=== PATIENT | female | born 1945 | race Caucasian/White ===

== ENCOUNTER 2016-05-07 10:04 | Outpatient (CLI) | payer MEDICARE | END 2016-05-07 10:05 | disposition home or self-care (01) | DX: J47.9 Bronchiectasis, uncomplicated (principal); J44.1 Chronic obstructive pulmonary disease with (acute) exacerbation; R91.1 Solitary pulmonary nodule; R91.8 Other nonspecific abnormal finding of lung field ==

== ENCOUNTER 2016-07-04 10:16 | Outpatient (CLI) | payer MEDICARE | END 2016-07-04 10:17 | disposition home or self-care (01) | DX: R91.8 Other nonspecific abnormal finding of lung field (principal) ==

== ENCOUNTER 2016-08-14 09:17 | Outpatient (CLI) | payer MEDICARE ==
[2016-08-14 18:40] LABS: BASOPHILS # (AUTO) 0.1 10^3/uL (0.0-0.1); EOSINOPHILS # (AUTO) 0.1 10^3/uL (0.0-0.7); EOSINOPHILS % (AUTO) 1.8 %; HCT - HEMATOCRIT 45.4 % (37.0-47.0); HGB - HEMOGLOBIN 14.9 g/dL (12.0-16.0); LYMPHOCYTES % (AUTO) 26.1 %; MEAN CORPUSCULAR HEMOGLOBIN 30.3 pg (27.0-31.0); MEAN CORPUSCULAR HGB CONC 32.8 g/dL (32.0-36.0); MEAN CORPUSCULAR VOLUME 92.7 fL (81.0-99.0); MEAN PLATELET VOLUME 9.5 fL (7.9-10.8); MONOCYTES # (AUTO) 0.6 10^3/uL (0.0-1.0); MONOCYTES % (AUTO) 8.3 %; NEUTROPHILS # (AUTO) 4.9 10^3/uL (1.5-6.6); NEUTROPHILS % (AUTO) 62.8 %; NUCLEATED RED BLOOD CELLS AUTO 0.1 /100WBC; RED CELL DISTRIBUTION WIDTH 15.2 % (12.0-15.0); UNCORRECTED WHITE BLOOD COUNT 7.8 x10^3/uL; WHITE BLOOD COUNT 7.8 x10^3/uL (4.8-10.8)
[2016-08-14 18:49] LABS: ALBUMIN/GLOBULIN RATIO 1.1 (1.0-2.2); BILIRUBIN,TOTAL 0.4 mg/dL (0.2-1.0); CALCIUM 9.3 mg/dL (8.5-10.3); CREATININE 0.6 mg/dL (0.4-1.0); POTASSIUM 3.8 mmol/L (3.5-5.0); TOTAL PROTEIN 7.6 g/dL (6.7-8.2)
== END 2016-08-14 09:18 | disposition home or self-care (01) ==
LOC: LAB.F 09:17
PROVIDERS: ATTEND Nurse Practitioner Family
DX: Z51.81 Encounter for therapeutic drug level monitoring (principal)
CPT/HCPCS: 36415; 80053; 85025

== ENCOUNTER 2017-06-04 08:00 | Outpatient (CLI) | payer MEDICARE ==
[2017-06-04 17:31] LABS: ALBUMIN 4.1 g/dL (3.2-5.5); ALBUMIN/GLOBULIN RATIO 1.1 (1.0-2.2); BILIRUBIN,TOTAL 0.6 mg/dL (0.2-1.0); CALCIUM 9.1 mg/dL (8.5-10.3); CREATININE 0.5 mg/dL (0.4-1.0)
== END 2017-06-04 08:01 | disposition home or self-care (01) ==
LOC: LAB.F 08:00
PROVIDERS: ATTEND Physician Assistant Medical
DX: Z51.81 Encounter for therapeutic drug level monitoring (principal)
CPT/HCPCS: 36415; 80053

== ENCOUNTER 2017-06-17 14:00 | Outpatient (CLI) | payer MEDICARE ==
--- NOTE | 2017-06-17 16:10 | DEXA Report ---
DEXA SCAN: 06/17/2017 CLINICAL INDICATION: Postmenopausal. TECHNIQUE: Dual energy x-ray absorptiometry (DXA) was performed on a [employer] system. Regions measured are the AP spine, femoral neck, and, if needed, forearm. COMPARISON: None. In accordance with the International Society for Clinical Densitometry (ISCD) guidelines, data from previous exams may be reanalyzed using current recommendations and techniques. This is done to allow a more accurate basis for comparison with the current study. FINDINGS Data for the lumbar spine is as follows: REGION BMD (g/cm/cm) T-SCORE Z-SCORE L1 1.078 -0.4 2.0 L2 1.235 0.3 2.7 L3 1.012 -1.6 0.8 L4 0.926 -2.3 0.1 L1-L4 1.061 -1.0 1.4 NOTE: All evaluable vertebrae are used for classification. Data for the hip is as follows: REGION BMD (g/cm/cm) T-SCORE Z-SCORE Neck 0.769 -1.9 0.3 TOTAL 0.867 -1.1 1.0 NOTE: The femoral neck or total proximal femur, whichever is lowest, is used for classification. IMPRESSION WHO CLASSIFICATION BASED ON THE INTERNATIONAL REFERENCE STANDARD IS OSTEOPENIA. FRACTURE RISK IS INCREASED. RECOMMENDATION: Patients with diagnosis of osteoporosis or osteopenia should have regular bone mineral density assessment. For those eligible for Medicare, routine testing is allowed once every 2 years. Testing frequency can be increased for patients who have rapidly progressing disease or for those who are receiving medical therapy to restore bone mass. COMMENT World Health Organization (WHO) definitions for osteoporosis and osteopenia: NORMAL BMD: T-score at 1.0 or higher, fracture risk is low. OSTEOPENIA BMD: T-score between 1.0 and -2.5, fracture risk is increased. OSTEOPOROSIS BMD: T-score at 2.5 or lower, fracture risk high. National Osteoporosis Foundation recommends: 1. Obtain adequate dietary calcium (at least 1200 mg per day) and vitamin D (400 -800 international units per day). 2. Participate, as appropriate, in regular weightbearing and muscle- strengthening exercise. 3. Avoid tobacco use and reduce alcohol and caffeine intake. 4. For more detailed information see the website at www.NOF.org. TD: 06/17/2017 15:16 PRISCA
== END 2017-06-17 14:01 | disposition home or self-care (01) ==
LOC: DI 14:00
PROVIDERS: ATTEND Physician Assistant Medical
DX: M85.89 Other specified disorders of bone density and structure, multiple sites (principal)
CPT/HCPCS: 77080

== ENCOUNTER 2017-08-12 11:41 | Outpatient (CLI) | payer MEDICARE ==
--- NOTE | 2017-08-12 14:04 | CT Report ---
CT OF CHEST WITHOUT CONTRAST: 08/12/2017 CLINICAL INDICATION: Solitary pulmonary nodule. COMPARISON: 05/07/2016. TECHNIQUE: Axial CT images of the chest were obtained without intravenous contrast. FINDINGS: The heart and great vessels demonstrate mild atherosclerotic calcifications. No hilar or mediastinal lymphadenopathy is appreciated. The lungs again demonstrate extensive bronchiectasis, with endobronchial plugging. The previously noted 5 mm nodule in the lateral right lower lobe is stable. No definite new pulmonary nodule is appreciated. No effusion or pneumothorax is present. Limited evaluation of upper abdominal structures demonstrates normal adrenal glands. Osseous structures demonstrate degenerative changes. IMPRESSION: STABLE RIGHT LOWER LOBE PULMONARY NODULE. STABLE EXTENSIVE BRONCHIECTASIS WITH MUCUS PLUGGING. NO SIGNIFICANT INTERVAL CHANGE. CT DOSE REDUCTION STATEMENT In accordance with CT protocol optimization, one or more of the following dose reduction techniques were utilized for this exam: automated exposure control, adjustment of mA and/or KV based on patient size, or use of iterative reconstructive technique. TD: 08/12/2017 13:41
== END 2017-08-12 11:42 | disposition home or self-care (01) ==
LOC: DI 11:41
PROVIDERS: ATTEND Internal Medicine Sleep Medicine
DX: R91.1 Solitary pulmonary nodule (principal); J47.9 Bronchiectasis, uncomplicated
CPT/HCPCS: 71250

== ENCOUNTER 2017-08-14 08:14 | Outpatient (CLI) | payer MEDICARE ==
[2017-08-14 11:17] LABS: BASOPHILS # (AUTO) 0.1 10^3/uL (0.0-0.1); BASOPHILS % (AUTO) 0.8 %; EOSINOPHILS % (AUTO) 0.2 %; HGB - HEMOGLOBIN 15.6 g/dL (12.0-16.0); LYMPHOCYTES # (AUTO) 1.3 10^3/uL (1.5-3.5); LYMPHOCYTES % (AUTO) 17.2 %; MEAN CORPUSCULAR HEMOGLOBIN 30.1 pg (27.0-31.0); MEAN CORPUSCULAR HGB CONC 32.9 g/dL (32.0-36.0); MEAN CORPUSCULAR VOLUME 91.4 fL (81.0-99.0); MEAN PLATELET VOLUME 9.6 fL (7.9-10.8); MONOCYTES # (AUTO) 0.3 10^3/uL (0.0-1.0); MONOCYTES % (AUTO) 3.5 %; NEUTROPHILS # (AUTO) 6.1 10^3/uL (1.5-6.6); NEUTROPHILS % (AUTO) 78.3 %; PLT - PLATELET COUNT 222 10^3/uL (130-450); RED BLOOD COUNT 5.19 10^6/uL (4.20-5.40); RED CELL DISTRIBUTION WIDTH 16.7 % (12.0-15.0); WHITE BLOOD COUNT 7.8 x10^3/uL (4.8-10.8)
[2017-08-14 11:54] LABS: PLATELET ESTIMATE, MANUAL NORMAL (130-450,000) (NORMAL); PLATELET MORPHOLOGY 1+ GIANT PLATELETS (NORMAL); RBC MORPHOLOGY (MULTIPLE) NORMAL APPEARANCE (NORMAL)
[2017-08-14 11:59] LABS: THYROID STIMULATING HORMONE 0.36 uIU/mL (0.34-5.60)
[2017-08-15 10:04] LABS: FREE T4 (FREE THYROXINE) 0.74 ng/dL (0.58-1.64)
== END 2017-08-14 08:15 | disposition home or self-care (01) ==
LOC: LAB.F 08:14
PROVIDERS: ATTEND Physician Assistant Medical
DX: R53.83 Other fatigue (principal); R94.6 Abnormal results of thyroid function studies; Z51.81 Encounter for therapeutic drug level monitoring
CPT/HCPCS: 36415; 84439; 84443; 84481; 85025

== ENCOUNTER 2017-08-26 08:00 | Outpatient (CLI) | payer MEDICARE ==
[2017-09-02 06:11] LABS: CREATININE, URINE 0.75 g/24 h (0.63-2.50)
== END 2017-08-26 23:59 ==
LOC: LAB.R 08:00
PROVIDERS: ATTEND Physician Assistant Medical
DX: R53.83 Other fatigue (principal)
CPT/HCPCS: 82530; 82570

== ENCOUNTER 2017-09-12 08:36 | Outpatient (CLI) | payer MEDICARE | END 2017-09-12 08:37 | disposition home or self-care (01) | LOC: RT 08:36 | PROVIDERS: ATTEND Internal Medicine Cardiovascular Disease | DX: R06.00 Dyspnea, unspecified (principal) | CPT/HCPCS: 93005 ==

== ENCOUNTER 2017-09-18 09:09 | Outpatient (CLI) | payer MEDICARE | END 2017-09-18 09:10 | disposition home or self-care (01) | LOC: DI 09:09 | PROVIDERS: ATTEND Internal Medicine Cardiovascular Disease | DX: R06.00 Dyspnea, unspecified (principal); I51.7 Cardiomegaly; R59.0 Localized enlarged lymph nodes | CPT/HCPCS: 76882; 93306 ==

== ENCOUNTER 2017-09-18 09:10 | Outpatient (CLI) | payer MEDICARE ==
--- NOTE | 2017-09-18 10:27 | Ultrasound Report ---
Procedure Date: 09/18/2017 Accession Number: [id number] / [id number] Procedure: US - Ext Limited Non Vascular CPT Code: FULL RESULT: EXAM: Ext Limited Non Vascular DATE: 09/18/2017 10:16 AM CLINICAL HISTORY: AXILLARY LYMPHADENOPATHY TECHNIQUE: Grayscale ultrasound and limited color Doppler of the area of interest in the right axilla was obtained. COMPARISON: None FINDINGS: Multiple morphologically normal subcentimeter lymph nodes are identified. There is no mass or collection. There is no hyperemia in the region by color Doppler. IMPRESSION: Sonographically normal lymph nodes with no evidence of mass or collection to suggest abscess.
== END 2017-09-18 09:11 | disposition home or self-care (01) ==
LOC: DI 09:10
PROVIDERS: ATTEND Physician Assistant Medical
DX: R59.0 Localized enlarged lymph nodes (principal)
CPT/HCPCS: 76882

== ENCOUNTER 2017-10-10 08:46 | Outpatient (CLI) | payer MEDICARE ==
[2017-10-10] MEDS ORDERED: REGADENOSON 0.4 MG/5 ML SYRINGE IVP ONE ×2 (09:43→14:10)
--- NOTE | 2017-10-10 12:11 | CARDIAC PROCEDURE NOTE ---
DATE OF SERVICE: 10/10/2017 Physician: MINO Blanco PRIMARY CARE PHYSICIAN: Dee Aguilar PA-C RESOURCE MANAGEMENT SPECIALIST: Dr. Michael Goldman M.D. PROCEDURE: Pharmacologic cardiac stress test. PROCEDURE SYMPTOMS: Dyspnea on exertion. CARDIAC RISK FACTORS: Age. No previous cardiac procedures. CLINICAL HISTORY: A 72-year-old female without known coronary artery disease. She has COPD and ligh t wheezing. There were no medications held. INITIAL RESTING VITAL SIGNS: BP 114/86, heart rate 93, height 56 inches, weight 100 pounds, BMI 22.2 . PROCEDURE AND FINDINGS: The patient's identity and date verified. Consent signed. Pharmaceut ical check. Pharmacologic stress testing was performed with Lexiscan at a dose of 0.5 mg over 10 seconds. The he art rate increased to 117 beats per minute from the infusion. Blood pressure elevated to 130/84 duri ng the stress procedure. The patient developed infusion-related symptoms, which included dyspnea and headache, and resolved spontaneously. The resting ECG demonstrated normal sinus rhythm with nondiag nostic Q-waves. Maximum ST segment depression with stress was less than 0.5 mm and upsloping. There was occasional PAC ectopy. FINAL IMPRESSIONS 1. Negative electrocardiogram for ischemia in the setting of vasodilator stress. 2. Nondiagnostic stress test for angina. 3. Occasional PAC. DISCUSSION AND RECOMMENDATIONS: Await myocardial perfusion report. TD: 10/10/2017 11:48
--- NOTE | 2017-10-10 16:03 | Nuclear Medicine Report ---
Procedure Date: 10/10/2017 Accession Number: [id number] / [id number] Procedure: NM - Myocardial Perfusion STR/RST CPT Code: FULL RESULT: EXAM: SINGLE-ISOTOPE PHARMACOLOGICAL STRESS TEST WITH REGADENOSON. SINGLE-ISOTOPE AND ONE-DAY REST/STRESS MYOCARDIAL PERFUSION SCANS WITH TOMOGRAPHIC IMAGING, QUANTITATIVE ANALYSIS, WALL MOTION ANALYSIS AND CALCULATION OF EJECTION FRACTION. EXAM DATE: 10/10/2017 02:11 PM. CLINICAL HISTORY: Dyspnea on exertion. COMPARISON: None available. TECHNIQUE: After the intravenous administration of 9.9 mCi of Tc-99m sestamibi, a rest myocardial perfusion scan was done with tomography. Motion correction was applied when appropriate. After an appropriate delay, pharmacological stress was performed with the infusion of 0.4 mg regadenoson per protocol. According to protocol, 41.3 mCi of Tc-99m sestamibi was injected for stress myocardial perfusion scan. Motion correction was applied when appropriate. Gated tomographic images were obtained for wall motion analysis and computation of left ventricular ejection fraction. ECG findings reported separately. FINDINGS: Images show a mildly reversible lateral wall defect. No other convincing fixed or reversible perfusion defects. Computer generated analysis: Summed stress score 7 Summed rest score 0 Summed difference score 7 Visually corrected: Summed stress score 5 Summed rest score 0 Summed difference score 5 wall motion analysis demonstrates no focal wall motion abnormality.. The left ventricular end-diastolic volume is 26 cc. The left ventricular end-systolic volume is 1 cc. The left ventricular ejection fraction is calculated to be 98%. IMPRESSION: 1. Mild reversible lateral wall defect. No other convincing fixed or reversible perfusion defects. 2. Left ventricular ejection fraction of 98% (this is presumably an overestimate). 3. Normal segmental and global wall motion. 4. Normal left ventricular cavity size, no change with stress. 5. Based on computer analysis, mildly abnormal exam with moderate ischemia. Based on visual analysis, the degree of ischemia is likely overestimated. RADIA
[2017-10-14 16:58] VITALS: BP 114/86
== END 2017-10-10 08:47 | disposition home or self-care (01) ==
LOC: DI 08:46
PROVIDERS: ATTEND Internal Medicine Cardiovascular Disease
DX: R06.09 Other forms of dyspnea (principal); I25.9 Chronic ischemic heart disease, unspecified; I49.1 Atrial premature depolarization
CPT/HCPCS: 78452; 93017; A9500; J2785

== ENCOUNTER 2017-11-28 08:50 | Outpatient (CLI) | payer MEDICARE ==
--- NOTE | 2017-12-02 15:23 | Mammography Report ---
Reason: SCREENING MAMMO Procedure Date: 11/28/2017 Accession Number: [id number] / [id number] Procedure: TACO - Screening Mammo Dig Bilat CPT Code: FULL RESULT: EXAM: Screening Mammo Dig Bilat DATE: 11/28/2017 3:35 PM CLINICAL HISTORY: 72-year-old female with history of late childbearing. TECHNIQUE: Bilateral CC and MLO views were obtained. COMPARISON: This will be a new baseline mammogram is the most recent mammograms over 10 years old. The patient cannot recall where these were done. FINDINGS: The breasts demonstrate extremely dense parenchyma bilaterally, limiting the sensitivity of mammography. No suspicious masses, clustered microcalcifications, or regions of architectural distortion are identified. IMPRESSION: Negative examination RECOMMENDATION: Routine annual screening unless otherwise clinically indicated. BIRADS CATEGORY 1: Negative STANDARD QUALIFYING STATEMENTS: 1. This examination was not reviewed with the aid of Computer-Aided Detection (CAD). 2. A negative or benign imaging report should not delay biopsy if clinically suspicious findings are present. Consider surgical consultation if warrented. More than 5% of cancers are not identified by imaging. 3. Dense breasts may obscure an underlying neoplasm. 4. This examination was reviewed without the aid of 3D breast imaging (tomosynthesis).
== END 2017-11-28 08:51 | disposition home or self-care (01) ==
LOC: DI 08:50
PROVIDERS: ATTEND Radiology Diagnostic Radiology
DX: Z12.31 Encounter for screening mammogram for malignant neoplasm of breast (principal)
CPT/HCPCS: 77067

== ENCOUNTER 2018-12-18 09:51 | Day surgery (SDC) | payer MEDICARE ==
[2018-12-18] MEDS ORDERED: MIDAZOLAM 2 MG/2 ML VIAL IVP ONE (09:52)
[2018-12-18] MEDS ORDERED: fentaNYL 100 MCG/2 ML VIAL IVP ONE (09:52)
[2018-12-18] MEDS ORDERED: LACTATED RINGERS 1,000 ML IV ONE (10:42)
[2018-12-18 13:28] VITALS: BP 104/76
== END 2018-12-18 09:52 | disposition home or self-care (01) ==
LOC: SDS 09:51
PROVIDERS: ATTEND Surgery
PROC: 0DJD8ZZ Inspection of Lower Intestinal Tract, Via Natural or Artificial Opening Endoscopic (ICD-10-PCS; principal; 2018-12-18 11:45)
DX: R19.5 Other fecal abnormalities (principal); K57.30 Diverticulosis of large intestine without perforation or abscess without bleeding; Z86.010 Personal history of colon polyps; J44.9 Chronic obstructive pulmonary disease, unspecified
CPT/HCPCS: 45378; J7120

== ENCOUNTER 2020-02-05 15:58 | Outpatient (CLI) | payer MEDICARE | END 2020-02-05 15:59 | disposition home or self-care (01) | LOC: COV 15:58 | PROVIDERS: ATTEND Ophthalmology | DX: Z01.812 Encounter for preprocedural laboratory examination (principal); H25.811 Combined forms of age-related cataract, right eye; Z20.828 Contact with and (suspected) exposure to other viral communicable diseases ==

== ENCOUNTER 2020-02-11 09:21 | Day surgery (SDC) | payer MEDICARE ==
[~2020-02-11 09:21] MED LIST: KETOROLAC 0.45% OPHTH DROPS ONE; PHENYLEPHRINE 2.5% OPHTH 2 ML DROPS ONE; PROPARACAINE 0.5% OPHTH DROPS 15 ML ONE
[2020-02-11] MEDS ORDERED: LACTATED RINGERS 500 ML IV ONE ×2 (10:00→11:03)
--- NOTE | 2020-02-11 10:27 | ANESTHESIA ---
Pre-Anesthesia VS, & Labs - Diagnosis right eye senile combined cataract - Procedure right eye cataract extraction with IOL Vital Signs: Temp Pulse Resp BP Pulse Ox 36.2 C L 95 16 137/119 H 91 L 02/11/20 09:55 02/11/20 09:55 02/11/20 09:55 02/11/20 09:55 02/11/20 09:55 Height: 5 ft 9 in Weight (kg): 44.4 kg Body Mass Index: 14.4 BMI Classification: Underweight - NPO >8 hours - Is Patient ?: No Home Medications and Allergies Home Medications: Ambulatory Orders Ciclesonide [Alvesco] 1 puffs PO BID 02/10/20 Albuterol 1 QID 12/18/18 Multivitamin [Daily Multiple Vitamin] 1 PO DAILY 12/18/18 Tiotropium Br/Olodaterol HCl [Stiolto Respimat Inhal [place]] 2 inh PO BID 12/18/18 Ciclesonide [Alvesco] 1 puffs PO BID 02/10/20 Allergies/Adverse Reactions: Allergies Allergy/AdvReac Type Severity Reaction Status Date / Time doxycycline Allergy Unknown Verified 12/18/18 10:44 iodine Allergy Unknown Verified 12/18/18 10:44 pravastatin AdvReac Unknown Verified 12/18/18 10:44 Anes History & Medical History - Anesthetic History Anesthesia Complications: reports: No previous complications - Medical History Cardiovascular: reports: None, Other Pulmonary: reports: COPD Gastrointestinal: reports: Other Urinary: reports: None Neuro: reports: None Musculoskeletal: reports: Osteoarthritis Endocrine/Autoimmune: reports: None Skin: reports: None Smoking Status: Never smoker Psychosocial: reports: No issues indicated History of Cancer?: No - Surgical History General: Appendectomy Eyes Ears Nose Throat (EENT): Cataracts, Tonsil/Adenoidectomy Gynecologic: Tubal ligation Orthopedic: Other Dermatologic: Skin cancer surgery Exam General: Alert, Oriented x3, Cooperative, No acute distress Dental: WNL Mouth Openin Fingerbreadth Neck Mobility: Normal Mallampati classification: III Thyromental Distance: 4-6 cm Mental/Cognitive Status: Alert/Oriented X3, Normal for patient Plan Anesthesia Type: MAC Consent for Procedure(s) Verified and Reviewed: Yes Code Status: Attempt Resuscitation ASA classification: 2-Mild systemic disease Is this case an emergency?: No
[2020-02-11] MEDS ORDERED: PROPARACAINE 0.5% OPHTH DROPS 15 ML EACHEYE ONE (10:50)
[2020-02-11] MEDS ORDERED: BSS/LIDOCAINE/EPINEPHRINE 1 ML SYRINGE IO ONE (10:50)
[2020-02-11] MEDS ORDERED: BRIMONIDINE 0.2% OPHTH DROPS 5 ML OPTH ONE (10:50)
[2020-02-11] MEDS ORDERED: TRIAMCIN/MOXIFLOX OPHTHALMIC 0.6 ML VIAL IO ONE ×2 (10:50→11:28)
[2020-02-11] MEDS ORDERED: EPINEPHrine 1 MG/ML AMP IR ONE (10:50)
[2020-02-11] MEDS ORDERED: TIMOLOL 0.5% OPHTH DROPS OPTH ONE (10:50)
[2020-02-11] MEDS ORDERED: CHONDR SULF/HYALURONATE SYRINGE IO ONE (10:50)
[2020-02-11] MEDS ORDERED: VANCOMYCIN OPHTHALMI 8MG/0.8ML 8 MG/0.8 ML SYRINGE IO ONE ×2 (10:50→11:29)
[2020-02-11] MEDS ORDERED: EPINEPHrine 1 MG/ML AMP ONE (11:28)
[2020-02-11] MEDS ORDERED: TIMOLOL 0.5% OPHTH DROPS ONE (11:28)
[2020-02-11] MEDS ORDERED: BRIMONIDINE 0.2% OPHTH DROPS 5 ML ONE (11:28)
[2020-02-11] MEDS ORDERED: BSS/LIDOCAINE/EPINEPHRINE 1 ML SYRINGE ONE (11:29)
[2020-02-11 11:35] VITALS: BP 155/74
--- NOTE | 2020-02-11 12:29 | ANESTHESIA POST OP EVALUATION ---
Anesthesia Post Eval - Post Anesthesia Eval Vitals: Last Vital Signs Temp 36.3 C L 02/11/20 11:21 Pulse 89 02/11/20 11:21 Resp 18 02/11/20 11:21 BP 155/74 H 02/11/20 11:21 Pulse Ox 97 02/11/20 11:21 CV Function Including HR & BP: positive: Stable Pain Control: positive: Satisfactory Nausea & Vomiting: positive: Negative Mental Status: positive: Baseline Respiratory Status: Airway Patent Hydration Status: Satisfactory Anesthesia Complications: positive: None
--- NOTE | 2020-02-11 13:08 | OPERATIVE REPORT ---
DATE OF SERVICE: 02/11/2020 Physician: Will Jane MD PREOPERATIVE DIAGNOSIS: Visually significant cataract, right eye. Cataract surgery was performed on the left eye with a multifocal lens in [place] years ago. The patient does not recall when, who the surgeon was, or what type of lens was implanted. POSTOPERATIVE DIAGNOSIS: Visually significant cataract, right eye. Cataract surgery was performed o n the left eye with a multifocal lens in [place] years ago. The patient does not recall when, who the surgeon was, or what type of lens was implanted. PROCEDURE PERFORMED: Phacoemulsification with posterior chamber intraocular lens implant, right eye. SURGEON: Will Jane MD ANESTHESIA: Monitored anesthesia care. COMPLICATIONS: None. OPERATIVE INDICATIONS: This is a 74-year-old woman with progressive vision loss in the right eye due to 3+ nuclear sclerotic and 3+ posterior subcapsular cataract. Best corrected visual acuity was 20/ 60, with glare to hand motion vision in the right eye. Indications for surgery are overall decrease in vision, difficulty seeing words on a computer screen, difficulty reading, difficulty seeing words, closed caption or game scores on TV, difficulty seeing street signs, difficulty driving in low light or at night and difficulty with glare. She was consented at length concerning risks and benefits of cataract surgery, after which she expressed a desire to proceed with surgery. OPERATIVE PROCEDURE: The patient was taken to OR #3 and placed under monitored anesthesia care. A s urgical timeout was conducted confirming correct patient, correct procedure, and correct surgical sit e. She was given topical anesthesia, and prepped and draped in the usual sterile fashion. The eye w as entered at the 12, and 9 o'clock positions. Intracameral Shugarcaine was injected into the anteri or chamber, followed by Viscoat. A continuous-tear curvilinear capsulorrhexis was performed. The nu cleus was hydrodissected and phacoemulsified. Cortex was evacuated using automated infusion and aspi ration. Provisc was injected in the capsular bag, and a 22.0 diopter multifocal toric intraocular le ns was inserted into the bag and rotated to axis 020, which had been previously marked on the cornea for aligning the toric IOL. Infusion and aspiration was used to evacuate the viscoelastic materials. The eye was inflated to physiologic pressure using balanced salt solution and found to be watertigh t. The toric lens was verified to be at axis 020 still. Approximately 0.25 mL of a mixture of triam cinolone and moxifloxacin was injected transsclerally into the vitreous in the inferotemporal quadran t. An additional 0.55 mL of a mixture of triamcinolone, moxifloxacin, and vancomycin was injected marley bconjunctivally in the superior quadrant for infection and inflammation prophylaxis. Wound integrity was checked with Weck-Zaira sponges. The toricity axis of the lens was verified one more time and the n the patient was taken from the operating room in good condition and given postoperative instruction s. TD: 02/11/2020 11:55
== END 2020-02-11 09:22 | disposition home or self-care (01) ==
LOC: SDS 09:21
PROVIDERS: ATTEND Ophthalmology
DX: H25.812 Combined forms of age-related cataract, left eye (principal); J44.9 Chronic obstructive pulmonary disease, unspecified; H25.811 Combined forms of age-related cataract, right eye; Z79.51 Long term (current) use of inhaled steroids

== ENCOUNTER 2020-08-31 08:04 | Outpatient (CLI) | payer MEDICARE ==
[2020-08-31 14:42] LABS: BASOPHILS # (AUTO) 0.1 10^3/uL (0.0-0.1); BASOPHILS % (AUTO) 0.8 %; EOSINOPHILS # (AUTO) 0.1 10^3/uL (0.0-0.7); EOSINOPHILS % (AUTO) 0.6 %; HCT - HEMATOCRIT 47.1 % (37.0-47.0); HGB - HEMOGLOBIN 14.5 g/dL (12.0-16.0); LYMPHOCYTES # (AUTO) 2.2 10^3/uL (1.5-3.5); LYMPHOCYTES % (AUTO) 14.9 %; MEAN CORPUSCULAR HEMOGLOBIN 26.4 pg (27.0-31.0); MEAN CORPUSCULAR HGB CONC 30.8 g/dL (32.0-36.0); MEAN CORPUSCULAR VOLUME 85.8 fL (81.0-99.0); MONOCYTES # (AUTO) 1.1 10^3/uL (0.0-1.0); MONOCYTES % (AUTO) 7.3 %; NEUTROPHILS # (AUTO) 10.8 10^3/uL (1.5-6.6); PLT - PLATELET COUNT 205 10^3/uL (130-450); RED BLOOD COUNT 5.49 10^6/uL (4.20-5.40); RED CELL DISTRIBUTION WIDTH 18.4 % (12.0-15.0); WHITE BLOOD COUNT 14.8 x10^3/uL (4.8-10.8)
[2020-08-31 15:11] LABS: THYROID STIMULATING HORMONE 0.92 uIU/mL (0.34-5.60)
[2020-08-31 15:28] LABS: ALBUMIN 4.2 g/dL (3.2-5.5); ALBUMIN/GLOBULIN RATIO 1.3 (1.0-2.2); ALKALINE PHOSPHATASE 73 IU/L (42-121); ALT ALANINE AMINOTRANSFERASE 16 IU/L (10-60); AST ASPARTATE AMINOTRANSFERASE 23 IU/L (10-42); BILIRUBIN,TOTAL 0.8 mg/dL (0.2-1.0); BUN - BLOOD UREA NITROGEN 9 mg/dL (6-20); CALCIUM 9.1 mg/dL (8.5-10.3); CARBON DIOXIDE - CO2 28 mmol/L (21-32); CHLORIDE 99 mmol/L (101-111); CHOL/HDL RATIO 3.3 (<4.4); CHOLESTEROL 244 mg/dL; CREATININE 0.6 mg/dL (0.4-1.0); GFR - MDRD 97 (>89); GLUCOSE 94 mg/dL (70-100); HDL CHOLESTEROL 74 mg/dL; LDL CHOLESTEROL,CALCULATED 157 mg/dL; LDL/HDL RATIO 2.1 (<4.4); POTASSIUM 3.7 mmol/L (3.5-5.0); SODIUM 135 mmol/L (135-145); TOTAL PROTEIN 7.5 g/dL (6.7-8.2); TRIGLYCERIDES 64 mg/dL; VLDL CHOLESTEROL 13 mg/dL
== END 2020-08-31 08:05 | disposition home or self-care (01) ==
LOC: LAB.S 08:04
PROVIDERS: ATTEND Physician Assistant
DX: J30.2 Other seasonal allergic rhinitis (principal); Z51.81 Encounter for therapeutic drug level monitoring; R00.0 Tachycardia, unspecified; R06.09 Other forms of dyspnea; J47.9 Bronchiectasis, uncomplicated; R91.1 Solitary pulmonary nodule; Z79.899 Other long term (current) drug therapy
CPT/HCPCS: 36415; 80053; 80061; 82306; 83721; 84443; 85025

== ENCOUNTER 2020-09-09 08:00 | Outpatient (CLI) | payer MEDICARE ==
--- NOTE | 2020-09-09 14:06 | XRAY Report ---
PROCEDURE: Chest 2 View X-Ray INDICATIONS: COPD/FATIGUE TECHNIQUE: 2 view(s) of the chest. COMPARISON: None. FINDINGS: Surgical changes and devices: None. Lungs and pleura: The lungs have centrilobular emphysematous changes. Infiltrates in the right middle lobe and right lower lobe are present. Diffuse interstitial infiltrates are present bilaterally. No pleural effusions or pneumothorax. Lungs are clear. Mediastinum: Mediastinal contours are normal. Heart size is normal. Bones and chest wall: No suspicious bony abnormalities. Soft tissues appear unremarkable. IMPRESSION: Infiltrates in the right midlung and right lower lobe superimposed upon background COPD. Reviewed by: Arcenio Bradford on 09/09/2020 2:05 PM PDT Approved by: Arcenio Bradford on 09/09/2020 2:05 PM PDT Station ID: [id number]
== END 2020-09-09 23:59 | disposition home or self-care (01) ==
LOC: DI.S 08:00
PROVIDERS: ATTEND Emergency Medicine
DX: R91.8 Other nonspecific abnormal finding of lung field (principal); J44.9 Chronic obstructive pulmonary disease, unspecified; R53.83 Other fatigue

== ENCOUNTER 2020-10-12 13:27 | Outpatient (CLI) | payer MEDICARE ==
[2020-10-12 20:00] LABS: BASOPHILS # (AUTO) 0.1 10^3/uL (0.0-0.1); BASOPHILS % (AUTO) 1.4 %; EOSINOPHILS # (AUTO) 0.1 10^3/uL (0.0-0.7); EOSINOPHILS % (AUTO) 0.7 %; HCT - HEMATOCRIT 45.8 % (37.0-47.0); HGB - HEMOGLOBIN 14.3 g/dL (12.0-16.0); LYMPHOCYTES # (AUTO) 2.2 10^3/uL (1.5-3.5); LYMPHOCYTES % (AUTO) 23.9 %; MEAN CORPUSCULAR HEMOGLOBIN 26.6 pg (27.0-31.0); MEAN CORPUSCULAR HGB CONC 31.2 g/dL (32.0-36.0); MEAN CORPUSCULAR VOLUME 85.3 fL (81.0-99.0); MONOCYTES # (AUTO) 0.8 10^3/uL (0.0-1.0); MONOCYTES % (AUTO) 8.9 %; NEUTROPHILS # (AUTO) 5.7 10^3/uL (1.5-6.6); NEUTROPHILS % (AUTO) 60.9 %; PLT - PLATELET COUNT 206 10^3/uL (130-450); RED BLOOD COUNT 5.37 10^6/uL (4.20-5.40); RED CELL DISTRIBUTION WIDTH 17.8 % (12.0-15.0); WHITE BLOOD COUNT 9.4 x10^3/uL (4.8-10.8)
== END 2020-10-12 13:28 | disposition home or self-care (01) ==
LOC: LAB.S 13:27
PROVIDERS: ATTEND Physician Assistant
DX: R53.83 Other fatigue (principal)
CPT/HCPCS: 36415; 85025

== ENCOUNTER 2020-12-27 07:20 | Outpatient (CLI) | payer MEDICARE ==
[2020-12-27 16:07] LABS: BILIRUBIN,URINE NEGATIVE (NEGATIVE); GLUCOSE, URINE (UA) NEGATIVE (NEGATIVE); KETONES,URINE (UA) NEGATIVE (NEGATIVE); LEUKOCYTE ESTERASE, URINE SMALL (NEGATIVE); NITRITE,URINE NEGATIVE (NEGATIVE); OCCULT BLOOD,URINE NEGATIVE (NEGATIVE); PH,URINE 5.5 PH (5.0-7.5); PROTEIN,URINE 100 mg/dL (NEGATIVE); UROBILINOGEN,URINE 0.2 (NORMAL) E.U./dL (NORMAL)
[2020-12-27 16:10] LABS: CLARITY,URINE SL. CLOUDY (CLEAR)
[2020-12-27 17:07] LABS: RBC,URINE 0-5 /HPF (0-5); SQUAMOUS EPITHELIAL CELL,UR RARE Squamous (<= Few); WBC CLUMPS,URINE PRESENT
[2020-12-27 17:08] LABS: BACTERIA,URINE Few /HPF (None Seen); CRYSTALS,URINE >50 Calcium Oxalate /LPF; EPITHELIAL CELLS,UR RARE Renal Tubular /HPF (<= Few); MUCUS,URINE Few Strands
== END 2020-12-27 23:59 | disposition home or self-care (01) ==
LOC: LAB.S 07:20
PROVIDERS: ATTEND Physician Assistant Medical
DX: R30.0 Dysuria (principal)
CPT/HCPCS: 81001; 87086; 87181

== ENCOUNTER 2021-02-17 08:00 | Outpatient (CLI) | payer MEDICARE ==
[2021-02-17 15:17] LABS: BILIRUBIN,URINE NEGATIVE (NEGATIVE); GLUCOSE, URINE (UA) NEGATIVE (NEGATIVE); KETONES,URINE (UA) NEGATIVE (NEGATIVE); LEUKOCYTE ESTERASE, URINE TRACE (NEGATIVE); NITRITE,URINE NEGATIVE (NEGATIVE); OCCULT BLOOD,URINE NEGATIVE (NEGATIVE); PROTEIN,URINE 30 mg/dL (NEGATIVE); UROBILINOGEN,URINE 0.2 (NORMAL) E.U./dL (NORMAL)
[2021-02-17 15:20] LABS: CLARITY,URINE CLEAR (CLEAR)
[2021-02-17 15:37] LABS: BACTERIA,URINE None Seen /HPF (None Seen); RBC,URINE 0-5 /HPF (0-5); SQUAMOUS EPITHELIAL CELL,UR RARE Squamous (<= Few)
== END 2021-02-17 23:59 | disposition home or self-care (01) ==
LOC: LAB.S 08:00
PROVIDERS: ATTEND Emergency Medicine
DX: N39.0 Urinary tract infection, site not specified (principal)
CPT/HCPCS: 81001; 87086

== ENCOUNTER 2021-03-15 08:00 | Outpatient (CLI) | payer MEDICARE ==
[2021-03-15 14:43] LABS: BILIRUBIN,URINE NEGATIVE (NEGATIVE); GLUCOSE, URINE (UA) NEGATIVE (NEGATIVE); KETONES,URINE (UA) NEGATIVE (NEGATIVE); LEUKOCYTE ESTERASE, URINE NEGATIVE (NEGATIVE); NITRITE,URINE NEGATIVE (NEGATIVE); OCCULT BLOOD,URINE NEGATIVE (NEGATIVE); PH,URINE 5.5 PH (5.0-7.5); PROTEIN,URINE NEGATIVE (NEGATIVE); UROBILINOGEN,URINE 0.2 (NORMAL) E.U./dL (NORMAL)
[2021-03-15 14:56] LABS: BACTERIA,URINE Rare /HPF (None Seen); CLARITY,URINE CLEAR (CLEAR); RBC,URINE None Seen /HPF (0-5); SQUAMOUS EPITHELIAL CELL,UR RARE Squamous (<= Few); WBC,URINE 0-3 /HPF (0-5)
== END 2021-03-15 23:59 ==
LOC: LAB.S 08:00
PROVIDERS: ATTEND Emergency Medicine
DX: N39.0 Urinary tract infection, site not specified (principal)
CPT/HCPCS: 81001; 87086

== ENCOUNTER 2021-05-02 11:24 | Outpatient (CLI) | payer MEDICARE ==
[2021-05-02 15:32] LABS: BASOPHILS # (AUTO) 0.1 10^3/uL (0.0-0.1); BASOPHILS % (AUTO) 1.4 %; EOSINOPHILS # (AUTO) 0.1 10^3/uL (0.0-0.7); EOSINOPHILS % (AUTO) 1.4 %; HCT - HEMATOCRIT 46.4 % (37.0-47.0); HGB - HEMOGLOBIN 14.5 g/dL (12.0-16.0); LYMPHOCYTES # (AUTO) 2.2 10^3/uL (1.5-3.5); LYMPHOCYTES % (AUTO) 23.5 %; MEAN CORPUSCULAR HEMOGLOBIN 26.2 pg (27.0-31.0); MEAN CORPUSCULAR HGB CONC 31.3 g/dL (32.0-36.0); MEAN CORPUSCULAR VOLUME 83.9 fL (81.0-99.0); MONOCYTES # (AUTO) 0.9 10^3/uL (0.0-1.0); MONOCYTES % (AUTO) 9.3 %; NEUTROPHILS # (AUTO) 5.8 10^3/uL (1.5-6.6); NEUTROPHILS % (AUTO) 62.1 %; PLT - PLATELET COUNT 202 10^3/uL (130-450); RED BLOOD COUNT 5.53 10^6/uL (4.20-5.40); WHITE BLOOD COUNT 9.3 x10^3/uL (4.8-10.8)
[2021-05-02 15:45] LABS: ALBUMIN 4.1 g/dL (3.2-5.5); ALBUMIN/GLOBULIN RATIO 1.2 (1.0-2.2); BILIRUBIN,TOTAL 0.7 mg/dL (0.2-1.0); CALCIUM 9.4 mg/dL (8.5-10.3); CREATININE 0.7 mg/dL (0.4-1.0); POTASSIUM 4.5 mmol/L (3.5-5.0); TOTAL PROTEIN 7.5 g/dL (6.7-8.2)
== END 2021-05-02 11:25 | disposition home or self-care (01) ==
LOC: LAB.S 11:24
PROVIDERS: ATTEND Internal Medicine
DX: Z79.899 Other long term (current) drug therapy (principal)
CPT/HCPCS: 36415; 80053; 85025

== ENCOUNTER 2021-07-06 08:00 | Outpatient (CLI) | payer MEDICARE ==
--- NOTE | 2021-07-06 10:30 | XRAY Report ---
PROCEDURE: Chest 2 View X-Ray INDICATIONS: COPD ACUTE EXACERBATION TECHNIQUE: 2 view(s) of the chest. COMPARISON: None. FINDINGS: Surgical changes and devices: None. Lungs and pleura: Hyperexpanded lungs with flattened hemidiaphragms and increased size of the retrost ernal airspace. Findings are consistent with COPD. Chronic coarsening of the interstitium is similar. Reticulonodular opacities in the right lung base which are new from the prior study. Mediastinum: Mediastinal contours are normal. Heart size is normal. Bones and chest wall: No suspicious bony abnormalities. Soft tissues appear unremarkable. IMPRESSION: New reticular nodular airspace opacities in the right lung base may be infectious. Chron ic findings of COPD are redemonstrated. Reviewed by: Edouard Messer MD on 07/06/2021 10:29 AM PDT Approved by: Edouard Messer MD on 07/06/2021 10:29 AM PDT Station ID: [id number]
== END 2021-07-06 23:59 | disposition home or self-care (01) ==
LOC: DI.S 08:00
PROVIDERS: ATTEND Registered Nurse
DX: J44.1 Chronic obstructive pulmonary disease with (acute) exacerbation (principal); R91.8 Other nonspecific abnormal finding of lung field; R30.0 Dysuria
CPT/HCPCS: 87086

== ENCOUNTER 2021-07-06 08:00 | Outpatient (CLI) | payer MEDICARE | END 2021-07-06 23:59 | disposition home or self-care (01) | LOC: LAB.S 08:00 | PROVIDERS: ATTEND Registered Nurse | DX: R30.0 Dysuria (principal) | CPT/HCPCS: 87086 ==

== ENCOUNTER 2021-08-18 08:00 | Outpatient (CLI) | payer MEDICARE ==
--- NOTE | 2021-08-18 16:50 | XRAY Report ---
PROCEDURE: Chest 2 View X-Ray INDICATIONS: ACUTE EXACERBATION COPD TECHNIQUE: 2 view(s) of the chest. COMPARISON: 2 views of the chest dated 07/06/2021. FINDINGS: Surgical changes and devices: None. Lungs and pleura: Diffuse reticular radiopacities are visualized throughout both lungs suggesting pul monary fibrosis. There are also diffuse interstitial markings, increased from the study dated 2 suggesting pulmonary edema. No pleural effusion or pneumothorax. Diaphragms are flattened and lung volumes are large consistent with emphysematous change. Mediastinum: Mediastinal contours are normal. Heart size is normal. Bones and chest wall: No suspicious bony abnormalities. Soft tissues appear unremarkable. IMPRESSION: 1. Findings suspicious for pulmonary edema superimposed on emphysematous change and pulmonary fibrosi s. Reviewed by: Juana Christopher MD on 08/18/2021 4:49 PM PDT Approved by: Juana Christopher MD on 08/18/2021 4:49 PM PDT Station ID: [id number]
== END 2021-08-18 23:59 | disposition home or self-care (01) ==
LOC: DI.S 08:00
PROVIDERS: ATTEND Physician Assistant Medical
DX: J44.1 Chronic obstructive pulmonary disease with (acute) exacerbation (principal)

== ENCOUNTER 2022-01-15 11:39 | Outpatient (CLI) | payer MEDICARE ==
--- NOTE | 2022-01-15 09:35 | XRAY Report ---
PROCEDURE: Chest 2 View X-Ray INDICATIONS: PRODUCTIVE COUGH TECHNIQUE: 2 views of the chest were acquired. COMPARISON: 10/13/2021 FINDINGS: Surgical changes and devices: None. Lungs and pleura: Bilateral diffuse interstitial prominence is unchanged compared to prior exam and is likely related to chronic lung disease. No acute abnormality. No pleural effusions or pneumothorax . No acute pulmonary opacities. Mediastinum: Mediastinal contours are normal. Heart size is normal. There is aortic atherosclerosi s. Bones and chest wall: No suspicious bony abnormalities. There is thoracic spine disc degeneration. Soft tissues appear unremarkable. IMPRESSION: 1. No acute abnormality. 2. Diffuse interstitial prominence consistent with underlying pulmonary fibrosis is unchanged compare d to remote studies. Reviewed by: Arcenio Bradford on 01/15/2022 9:34 AM [facility] Approved by: Arcenio Bradford on 01/15/2022 9:34 AM [facility] Station ID: [id number]
== END 2022-01-15 11:40 | disposition home or self-care (01) ==
LOC: DI.S 11:39
PROVIDERS: ATTEND Physician Assistant
DX: R05.9 Cough, unspecified (principal)

== ENCOUNTER 2022-02-07 08:00 | Outpatient (CLI) | payer MEDICARE ==
--- NOTE | 2022-02-07 10:21 | XRAY Report ---
PROCEDURE: Chest 2 View X-Ray INDICATIONS: PRODUCTIVE COUGH TECHNIQUE: 2 views of the chest were acquired. COMPARISON: 01/15/2022 FINDINGS: Surgical changes and devices: None. Lungs and pleura: No pleural effusions or pneumothorax. Since the prior examination the chronic inte rstitial change and scarring are present throughout both lungs remains stable. Mediastinum: Mediastinal contours are normal. Heart size is normal. Bones and chest wall: No suspicious bony abnormalities. Soft tissues appear unremarkable. IMPRESSION: 1. No evidence for active disease in the chest. 2. Stable moderate chronic interstitial change and scarring present throughout both lungs. Reviewed by: Charlie Tate MD on 02/07/2022 10:20 AM [facility] Approved by: Charlie Tate MD on 02/07/2022 10:20 AM [facility] Station ID: [id number]
[2022-02-07 15:12] LABS: BASOPHILS % (AUTO) 0.9 %; EOSINOPHILS % (AUTO) 0.1 %; HCT - HEMATOCRIT 46.2 % (37.0-47.0); LYMPHOCYTES % (AUTO) 11.9 %; MEAN CORPUSCULAR HEMOGLOBIN 25.3 pg (27.0-31.0); MEAN CORPUSCULAR HGB CONC 30.3 g/dL (32.0-36.0); MEAN CORPUSCULAR VOLUME 83.4 fL (81.0-99.0); PLT - PLATELET COUNT 239 10^3/uL (130-450); RED BLOOD COUNT 5.54 10^6/uL (4.20-5.40); RED CELL DISTRIBUTION WIDTH 19.3 % (12.0-15.0); WHITE BLOOD COUNT 13.9 x10^3/uL (4.8-10.8)
[2022-02-07 15:22] LABS: ABNORMAL LYMPHS % (MANUAL) 0 %
[2022-02-07 15:28] LABS: ALBUMIN 3.8 g/dL (3.2-5.5); BILIRUBIN,TOTAL 0.4 mg/dL (0.2-1.0); CALCIUM 8.8 mg/dL (8.5-10.3); CREATININE 0.6 mg/dL (0.4-1.0); POTASSIUM 4.3 mmol/L (3.5-5.0); TOTAL PROTEIN 7.5 g/dL (6.7-8.2)
[2022-02-07 16:34] LABS: BAND NEUTROPHILS % (MANUAL) 2 %; BASOPHILS # (MANUAL) 0.1 10^3/uL (0-0.1); BASOPHILS % (MANUAL) 1 %; DIFFERENTIAL COMMENT MANUAL DIFFERENTIAL; LYMPHOCYTES % (MANUAL) 6 %; MONOCYTES # (MANUAL) 0.6 10^3/uL (0.0-1.0); NEUTROPHILS # (MANUAL) 12.2 10^3/uL (1.5-6.6); PLATELET ESTIMATE, MANUAL NORMAL (130-450,000) (NORMAL); PLATELET MORPHOLOGY NORMAL APPEARANCE (NORMAL); RBC MORPHOLOGY (MULTIPLE) 2+ ANISOCYTOSIS (NORMAL); REACTIVE LYMPHS % (MANUAL) 1 %; WBC MORPHOLOGY (MULTIPLE) NORMAL APPEARANCE (NORMAL)
== END 2022-02-07 08:01 | disposition home or self-care (01) ==
LOC: DI.S 08:00
PROVIDERS: ATTEND Physician Assistant Medical
DX: R11.2 Nausea with vomiting, unspecified (principal); R05.9 Cough, unspecified; R39.11 Hesitancy of micturition
CPT/HCPCS: 36415; 80053; 85025

== ENCOUNTER 2022-02-07 08:00 | Outpatient (CLI) | payer MEDICARE | END 2022-02-07 23:59 | disposition home or self-care (01) | LOC: LAB.S 08:00 | PROVIDERS: ATTEND Physician Assistant Medical | DX: R39.11 Hesitancy of micturition (principal) | CPT/HCPCS: 87086; 87181 ==

== ENCOUNTER 2022-02-09 06:55 | Outpatient (CLI) | payer MEDICARE ==
--- NOTE | 2022-02-09 10:38 | MRI Report ---
PROCEDURE: BRAIN WO INDICATIONS: BLURRED VISION TECHNIQUE: Noncontrast axial T1 spin echo, axial T2 fast spin echo, sagittal and axial FLAIR, coronal T2 fast sp in echo, axial gradient echo, axial diffusion and ADC through the brain. COMPARISON: None. FINDINGS: Image quality: Excellent. CSF Spaces: Basal cisterns are patent. No extra-axial fluid collections. Ventricles are normal in size and shape. Brain: No intracranial masses. Several foci of susceptibility artifact can be seen, particularly in volving the cerebellum. Arboleda/white matter interface is normal. Brainstem appears normal. Diffusion- weighted images demonstrate no acute ischemic insult. No chronic ischemic insults. Normal intravasc ular flow voids are present. Age-appropriate brain parenchymal volume loss and chronic small vessel ischemic change can be seen. Skull and face: Calvarium has normal marrow signal. Orbits appear normal. Incidental note is made of bilateral lens replacements. Sinuses: Moderate to prominent mucosal thickening can be seen within the left maxillary sinus. The p aranasal sinuses otherwise are relatively clear. No significant abnormal fluid can be seen within the mastoid air cells. IMPRESSION: Bilateral lens replacements, without significant additional orbital findings. No significant brain abnormality is seen to explain the patient's presenting symptoms. Several foci of susceptibility artifact can be seen, including involving the cerebellum. These are at tributed to small foci of prior hemorrhage, although differential diagnosis includes areas of calcifi cation. Please correlate with prior history. No findings of acute or subacute infarction are seen. No findings of prior territorial infarction can be seen. Age-appropriate brain parenchymal volume loss and chronic small vessel ischemic change can be seen. Reviewed by: Chuy Barraza MD on 02/09/2022 9:37 AM [facility] Approved by: Chuy Barraza MD on 02/09/2022 9:37 AM [facility] Station ID: [id number]
== END 2022-02-09 06:56 | disposition home or self-care (01) ==
LOC: DI 06:55
PROVIDERS: ATTEND Physician Assistant Medical
DX: H53.8 Other visual disturbances (principal); R53.1 Weakness; R42 Dizziness and giddiness; G31.89 Other specified degenerative diseases of nervous system; I67.82 Cerebral ischemia

== ENCOUNTER 2022-05-18 07:00 | Outpatient (CLI) | payer MEDICARE ==
[2022-05-18 14:42] LABS: BASOPHILS % (AUTO) 2.1 %; EOSINOPHILS % (AUTO) 1.9 %; HCT - HEMATOCRIT 49.8 % (37.0-47.0); HGB - HEMOGLOBIN 15.4 g/dL (12.0-16.0); LYMPHOCYTES % (AUTO) 26.9 %; MEAN CORPUSCULAR HEMOGLOBIN 25.8 pg (27.0-31.0); MEAN CORPUSCULAR HGB CONC 30.9 g/dL (32.0-36.0); MEAN CORPUSCULAR VOLUME 83.6 fL (81.0-99.0); MONOCYTES % (AUTO) 9.7 %; NEUTROPHILS % (AUTO) 57.6 %; PLT - PLATELET COUNT 193 10^3/uL (130-450); RED BLOOD COUNT 5.96 10^6/uL (4.20-5.40); RED CELL DISTRIBUTION WIDTH 17.9 % (12.0-15.0); WHITE BLOOD COUNT 7.2 x10^3/uL (4.8-10.8)
[2022-05-18 14:50] LABS: ABNORMAL LYMPHS % (MANUAL) 0 %
[2022-05-18 15:25] LABS: BAND NEUTROPHILS % (MANUAL) 2 %; BASOPHILS # (MANUAL) 0.1 10^3/uL (0-0.1); BASOPHILS % (MANUAL) 2 %; EOSINOPHILS # (MANUAL) 0.1 10^3/uL (0-0.7); LYMPHOCYTES # (MANUAL) 1.9 10^3/uL (1.5-3.5); LYMPHOCYTES % (MANUAL) 22 %; MONOCYTES # (MANUAL) 0.7 10^3/uL (0.0-1.0); NEUTROPHILS # (MANUAL) 4.3 10^3/uL (1.5-6.6); PLATELET ESTIMATE, MANUAL NORMAL (130-450,000) (NORMAL); PLATELET MORPHOLOGY NORMAL APPEARANCE (NORMAL); RBC MORPHOLOGY (MULTIPLE) 2+ ANISOCYTOSIS (NORMAL); REACTIVE LYMPHS % (MANUAL) 4 %
[2022-05-18 15:26] LABS: DIFFERENTIAL COMMENT MANUAL DIFFERENTIAL
[2022-05-18 15:29] LABS: BILIRUBIN,TOTAL 0.6 mg/dL (0.2-1.0); CALCIUM 9.3 mg/dL (8.5-10.3); CREATININE 0.5 mg/dL (0.4-1.0)
[2022-05-18 15:55] LABS: THYROID STIMULATING HORMONE 1.68 uIU/mL (0.34-5.60)
== END 2022-05-18 07:01 | disposition home or self-care (01) ==
LOC: LAB.S 07:00
PROVIDERS: ATTEND Physician Assistant Medical
DX: J44.1 Chronic obstructive pulmonary disease with (acute) exacerbation (principal); Z13.29 Encounter for screening for other suspected endocrine disorder; R30.0 Dysuria
CPT/HCPCS: 36415; 80053; 84443; 85025; 87086

== ENCOUNTER 2022-05-18 13:50 | Outpatient (CLI) | payer MEDICARE ==
--- NOTE | 2022-05-18 15:37 | XRAY Report ---
PROCEDURE: Chest 2 View X-Ray INDICATIONS: DECREASED BLOOD OXYGEN,COPD TECHNIQUE: 2 views of the chest were acquired. COMPARISON: Chest radiographs 02/07/2022. FINDINGS: Surgical changes and devices: None. Lungs and pleura: No pleural effusions or pneumothorax. Hydrocephalus can be seen in setting of COPD . There are diffuse bilateral reticulonodular markings throughout both lungs. Mediastinum: Mediastinal contours are normal. Heart size is normal. Aorta is tortuous Bones and chest wall: No suspicious bony abnormalities. Soft tissues appear unremarkable. Generali zed osteopenia. Mild scoliotic curvature of the spine and multilevel degenerative changes. IMPRESSION: 1.Diffuse bilateral reticulonodular opacities may be chronic, although an atypical or viral pneumonia is not excluded. 2.Bilateral emphysematous changes. Reviewed by: Michael Moran MD on 05/18/2022 3:36 PM PDT Approved by: Michael Moran MD on 05/18/2022 3:36 PM PDT Station ID: [id number]
== END 2022-05-18 13:51 | disposition home or self-care (01) ==
LOC: DI.S 13:50
PROVIDERS: ATTEND Physician Assistant Medical
DX: R94.2 Abnormal results of pulmonary function studies (principal); R91.8 Other nonspecific abnormal finding of lung field; J43.9 Emphysema, unspecified; Z13.29 Encounter for screening for other suspected endocrine disorder; R30.0 Dysuria
CPT/HCPCS: 36415; 80053; 84443; 85025; 87086

== ENCOUNTER 2022-05-28 08:57 | Outpatient (CLI) | payer MEDICARE ==
--- NOTE | 2022-05-28 13:45 | CT Report ---
PROCEDURE: CHEST WO INDICATIONS: PULMONARY NODULE TECHNIQUE: Noncontrast 1mm axial images were acquired from the pulmonary apices to the posterior costophrenic an gles. Axial 5 mm soft tissue kernel reconstructions were performed as well as 8 mm axial MIP and cor onal and sagittal 5 mm reformations. For radiation dose reduction, the following was used: automate d exposure control, adjustment of mA and/or kV according to patient size. COMPARISON: X-ray 05/18/2021, CT 08/12/2017 FINDINGS: Image quality: Excellent. Lungs and pleura: Bronchiectasis and lower lobe predominant bronchial thickening with mucous impactio n and tree-in-bud nodules, slightly greater in extent compared with 2018. The region of groundglass w ith septal thickening in the anterior right upper lobe. Scattered pulmonary nodules. Examples include : -Stable 0.9 cm solid nodule, central right upper lobe (4/90). -Stable 0.4 cm solid nodule, lateral left lower lobe (4/176). -New 3.5 mm solid nodule, anterior left upper lobe (4/88). Mediastinum: Heart size is normal. No pericardial effusions. No mediastinal adenopathy by size criter ia. No large vessel abnormality. Three-vessel coronary artery calcifications. Chest wall and lower neck: Thyroid is unremarkable. No axillary or supraclavicular adenopathy by size . Bones: No aggressive osseous abnormality. Osteoporosis Upper Abdomen: Unremarkable. IMPRESSION: 1.Slightly progressed, basilar predominant bronchial wall thickening and bronchiectasis with regions of mucus impaction and tree-in-bud nodules. 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 2.New 3.5 mm solid nodule in the anterior left upper lobe. Consider 12 month follow-up, per Fleischne r Society guidelines. 3.Three-vessel coronary calcifications, likely marked for age. Consider cardiology referral. 4.Osteoporosis. Reviewed by: Clyde Poon on 05/28/2022 11:05 AM PDT Approved by: Clyde Poon on 05/28/2022 11:05 AM PDT Station ID: [id number]
== END 2022-05-28 08:58 | disposition home or self-care (01) ==
LOC: DI 08:57
PROVIDERS: ATTEND Physician Assistant Medical
DX: J47.9 Bronchiectasis, uncomplicated (principal); R91.8 Other nonspecific abnormal finding of lung field; I25.10 Atherosclerotic heart disease of native coronary artery without angina pectoris; M81.0 Age-related osteoporosis without current pathological fracture

== ENCOUNTER 2022-08-17 09:17 | Outpatient (CLI) | payer MEDICARE | END 2022-08-17 23:59 | disposition critical access hospital (66) | LOC: EMS 09:17 | DX: R09.02 Hypoxemia (principal); R05.9 Cough, unspecified; J44.9 Chronic obstructive pulmonary disease, unspecified; Z99.81 Dependence on supplemental oxygen | CPT/HCPCS: A0425; A0427 ==

== ENCOUNTER 2022-08-17 09:50 | Emergency (ER) | payer MEDICARE ==
--- NOTE | 2022-08-17 10:03 | ED Physician Documentation ---
History of Present Illness - Stated complaint Stated Complaint: SOA - Additonal information Additional information: Patient is 76-year-old female with known history of COPD with chronic hypoxic respiratory failure and baseline oxygen demand of 4 L presenting via EMS with cough and shortness of breath. Seen today at walk-in clinic and found to be hypoxic despite being at her baseline oxygen demand. Was given DuoNeb with improvement in saturations. Patient denies any history of smoking. Denies fever, chest pain, productive cough or known sick contacts. 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 HEENT: Cataracts, Tonsil/Adenoidectomy Derm: Skin cancer surgery - Present Medications Home Medications: Ambulatory Orders Medication Instructions Recorded Confirmed Albuterol 1 QID 12/18/18 Multivitamin [Daily Multiple 1 PO DAILY 12/18/18 Vitamin] Tiotropium Br/Olodaterol HCl 2 inh PO BID 12/18/18 02/10/20 [Stiolto Respimat Inhal [place]] Ciclesonide [Alvesco] 1 puffs PO BID 02/10/20 02/10/20 predniSONE [Prednisone] 50 mg PO DAILY #4 tablet 08/17/22 - Allergies Allergies/Adverse Reactions: Allergies Allergy/AdvReac Type Severity Reaction Status Date / Time doxycycline Allergy Unknown Verified 08/17/22 10:02 iodine Allergy Unknown Verified 08/17/22 10:02 pravastatin AdvReac Unknown Verified 08/17/22 10:02 - Social History Smoking Status: Never smoker PD ED PE NORMAL - Vitals Vital signs reviewed: Yes (Tachycardic, elderly, frail.) - General General: Alert and oriented X 3, No acute distress - HEENT HEENT: Atraumatic, PERRL, EOMI, Ears normal - Neck Neck: Supple, no meningeal sign, No bony TTP, No adenopathy - Cardiac Cardiac: RRR, No murmur, No gallop, No rub - Respiratory Respiratory: No respiratory distress, Other (Scant end expiratory wheezing) - Abdomen Abdomen: Normal bowel sounds, Soft, Non tender - Female Female : Deferred - Rectal Rectal: Deferred - Derm Derm: Normal color - Extremities Extremities: No deformity - Neuro Neuro: Alert and oriented X 3, 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 Relevant findings are: Sinus rhythm with rate 110 bpm. Normal axis. Normal NH, QRS, QTc intervals. No ST segment elevations or T wave inversions. - Labs Labs: Laboratory Tests 08/17/22 08/17/22 08/17/22 10:12 10:14 10:14 WBC 27.0 H RBC 5.24 Hgb 13.5 Hct 42.5 MCV 81.1 MCH 25.8 L MCHC 31.8 L RDW 17.7 H Plt Count 144 Neut # (Auto) Not Reportable Lymph # (Auto) Not Reportable Mesa # (Auto) Not Reportable Eos # (Auto) Not Reportable Baso # (Auto) Not Reportable Absolute Nucleated RBC Not Reportable Total Counted 100 Band Neuts % (Manual) 8 Abnorm Lymph % (Manual) 0 Metamyelocytes % 1 H Nucleated RBC % Not Reportable Neutrophils # (Manual) 24.3 H Lymphocytes # (Manual) 0.5 L Monocytes # (Manual) 1.6 H Eosinophils # (Manual) 0.3 Basophils # (Manual) 0.0 Differential Comment MANUAL DIFFERENTIAL Manual Slide Review Indicated WBC Morphology NORMAL APPEARANCE Platelet Estimate NORMAL (130-450,000) Platelet Morphology NORMAL APPEARANCE RBC Morph Micro Appear 2+ ANISOCYTOSIS VBG pH VBG pCO2 VBG pO2 VBG HCO3 VBG Total CO2 VBG O2 Saturation VBG Base Excess Sodium 133 L Potassium 3.9 Chloride 97 L Carbon Dioxide 26 Anion Gap 10.0 BUN 10 Creatinine 0.6 Estimated GFR (MDRD) 97 Glucose 119 H Calcium 8.7 Magnesium 1.9 Total Bilirubin 0.8 AST 31 ALT 21 Alkaline Phosphatase 91 Troponin I High Sens B-Natriuretic Peptide Total Protein 7.5 Albumin 3.9 Globulin 3.6 Albumin/Globulin Ratio 1.1 Lipase 25 Nasal Adenovirus (PCR) NOT DETECTED Nasal B. parapertussis DNA (PCR) NOT DETECTED Nasal Coronavir 229E PCR NOT DETECTED Nasal Coronavir HKU1 PCR NOT DETECTED Nasal Coronavir NL63 PCR NOT DETECTED Nasal Coronavir OC43 PCR NOT DETECTED Nasal Enterovir/Rhinovir PCR NOT DETECTED Nasal Influenza B PCR NOT DETECTED Nasal Influenza A PCR NOT DETECTED Nasal Parainfluen 1 PCR NOT DETECTED Nasal Parainfluen 2 PCR NOT DETECTED Nasal Parainfluen 3 PCR NOT DETECTED Nasal Parainfluen 4 PCR NOT DETECTED Nasal RSV (PCR) NOT DETECTED Nasal B.pertussis DNA PCR NOT DETECTED Nasal C.pneumoniae (PCR) NOT DETECTED Kendrick Human Metapneumo PCR NOT DETECTED Nasal M.pneumoniae (PCR) NOT DETECTED Nasal SARS-CoV-2 (PCR) NOT DETECTED 08/17/22 08/17/22 08/17/22 10:14 10:14 10:14 WBC RBC Hgb Hct MCV MCH MCHC RDW Plt Count Neut # (Auto) Lymph # (Auto) Mesa # (Auto) Eos # (Auto) Baso # (Auto) Absolute Nucleated RBC Total Counted Band Neuts % (Manual) Abnorm Lymph % (Manual) Metamyelocytes % Nucleated RBC % Neutrophils # (Manual) Lymphocytes # (Manual) Monocytes # (Manual) Eosinophils # (Manual) Basophils # (Manual) Differential Comment Manual Slide Review WBC Morphology Platelet Estimate Platelet Morphology RBC Morph Micro Appear VBG pH 7.407 VBG pCO2 38.6 L VBG pO2 36.2 VBG HCO3 23.8 VBG Total CO2 24.9 VBG O2 Saturation 72.0 VBG Base Excess -0.7 Sodium Potassium Chloride Carbon Dioxide Anion Gap BUN Creatinine Estimated GFR (MDRD) Glucose Calcium Magnesium Total Bilirubin AST ALT Alkaline Phosphatase Troponin I High Sens 5.3 B-Natriuretic Peptide 88 Total Protein Albumin Globulin Albumin/Globulin Ratio Lipase Nasal Adenovirus (PCR) Nasal B. parapertussis DNA (PCR) Nasal Coronavir 229E PCR Nasal Coronavir HKU1 PCR Nasal Coronavir NL63 PCR Nasal Coronavir OC43 PCR Nasal Enterovir/Rhinovir PCR Nasal Influenza B PCR Nasal Influenza A PCR Nasal Parainfluen 1 PCR Nasal Parainfluen 2 PCR Nasal Parainfluen 3 PCR Nasal Parainfluen 4 PCR Nasal RSV (PCR) Nasal B.pertussis DNA PCR Nasal C.pneumoniae (PCR) Kendrick Human Metapneumo PCR Nasal M.pneumoniae (PCR) Nasal SARS-CoV-2 (PCR) PD Medical Decision Making - ED course Complexity details: reviewed results, re-evaluated patient, d/w patient, d/w family ED course: Patient is 76-year-old female with known history of chronic hypoxic respiratory failure presenting to the emergency department with increased cough and shortness of breath. Was found to be hypoxic at primary care earlier today. Given breathing treatment. On arrival to the emergency department reported feeling significantly better. Was maintaining adequate oxygen saturations greater than 88% on her baseline 4 L. Did have some scant end expiratory wheezing. Was offered a breathing treatment which was declined here in the emergency department. Given dose methylprednisolone. EKG is on above was negative for indications of acute cardiac ischemia or dysrhythmia. Labs all generally within normal limits with the exception of an elevated white blood cell count of uncertain clinical significance. A CTA chest negative for PE or pneumonia. Patient monitored carefully in the emergency department for several hours. On reevaluation reported feeling significantly better. Passed an ambulatory trial. I did have some concerns as she remained somewhat tachycardic and tachypneic during these events and had a persistent low-level wheeze. She was explicitly offered hospitalization which she declined. At this time will discharge on short course prednisone with encouragement for regular use of metered-dose albuterol inhaler breathing treatments at home. Will encourage careful follow-up with primary care. Clear return precautions given prior to discharge. Departure - Departure Disposition: Home, Self Care Clinical Impression: COPD exacerbation Instructions: COPD Dc Prescriptions: predniSONE [Prednisone] 50 mg PO DAILY #4 tablet Comments: Thank you for allowing us to care for you today at [facility]. Today in the emergency department you are diagnosed with a COPD exacerbation. I know we discussed hospitalization and at this time he would like to go home. I will be discharging you with a course of prednisone to begin tomorrow. This was sent to your preferred pharmacy, [facility] in [place]. I like you to use y our metered-dose albuterol inhaler, 4 puffs every 4 hours or give yourself 1 nebulizer treatment every 4 hours for the next few days. Please follow-up with your primary care doctor soon as possible. If it anytime you have worsening symptoms please return to the emergency room. Discharge Date/Time: 08/17/22 14:07
[2022-08-17 10:21] LABS: VBG BASE EXCESS -0.7 mmol/L (-2 - +2); VBG HCO3 23.8 mmol/L (23-28); VBG PCO2 38.6 mmHg (41-51); VBG PH 7.407 (7.31-7.41); VBG PO2 36.2 mmHg (25-47); VBG TOTAL CO2 24.9 mmol/L (24-29)
[2022-08-17 10:23] LABS: BASOPHILS % (AUTO) 0.9 %; EOSINOPHILS % (AUTO) 0.3 %; HCT - HEMATOCRIT 42.5 % (37.0-47.0); HGB - HEMOGLOBIN 13.5 g/dL (12.0-16.0); MEAN CORPUSCULAR HEMOGLOBIN 25.8 pg (27.0-31.0); MEAN CORPUSCULAR HGB CONC 31.8 g/dL (32.0-36.0); MEAN CORPUSCULAR VOLUME 81.1 fL (81.0-99.0); MONOCYTES % (AUTO) 7.2 %; NEUTROPHILS % (AUTO) 87.3 %; PLT - PLATELET COUNT 144 10^3/uL (130-450); RED BLOOD COUNT 5.24 10^6/uL (4.20-5.40); RED CELL DISTRIBUTION WIDTH 17.7 % (12.0-15.0)
[2022-08-17 10:24] LABS: SLIDE REVIEW? Indicated
[2022-08-17 10:25] LABS: ABNORMAL LYMPHS % (MANUAL) 0 %
[2022-08-17 10:33] LABS: ALBUMIN 3.9 g/dL (3.2-5.5); ALBUMIN/GLOBULIN RATIO 1.1 (1.0-2.2); BILIRUBIN,TOTAL 0.8 mg/dL (0.2-1.0); CALCIUM 8.7 mg/dL (8.5-10.3); CREATININE 0.6 mg/dL (0.4-1.0); MAGNESIUM 1.9 mg/dL (1.7-2.8); POTASSIUM 3.9 mmol/L (3.5-5.0); TOTAL PROTEIN 7.5 g/dL (6.7-8.2)
[2022-08-17 10:44] LABS: BAND NEUTROPHILS % (MANUAL) 8 %; EOSINOPHILS # (MANUAL) 0.3 10^3/uL (0-0.7); LYMPHOCYTES # (MANUAL) 0.5 10^3/uL (1.5-3.5); LYMPHOCYTES % (MANUAL) 2 %; METAMYELOCYTES % (MANUAL) 1 %; MONOCYTES # (MANUAL) 1.6 10^3/uL (0.0-1.0); NEUTROPHILS # (MANUAL) 24.3 10^3/uL (1.5-6.6)
[2022-08-17 10:47] LABS: PLATELET MORPHOLOGY NORMAL APPEARANCE (NORMAL); RBC MORPHOLOGY (MULTIPLE) 2+ ANISOCYTOSIS (NORMAL)
[2022-08-17] MEDS ORDERED: iohexoL-300 100 ML VIAL ONE (10:47)
[2022-08-17 10:48] LABS: DIFFERENTIAL COMMENT MANUAL DIFFERENTIAL; PLATELET ESTIMATE, MANUAL NORMAL (130-450,000) (NORMAL); WBC MORPHOLOGY (MULTIPLE) NORMAL APPEARANCE (NORMAL)
[2022-08-17 11:17] LABS: B. PARAPERTUSSIS- RESP PCR PAN NOT DETECTED; B. PERTUSSIS- RESP PCR PANEL NOT DETECTED; C. PNEUMONIAE- RESP PCR PANEL NOT DETECTED; CORONAVIRUS 229E-RESP PCR NOT DETECTED; CORONAVIRUS HKU1-RESP PCR NOT DETECTED; CORONAVIRUS NL63-RESP PCR NOT DETECTED; CORONAVIRUS OC43-RESP PCR NOT DETECTED; HUMAN METAPNEUMOVIRUS NOT DETECTED; INFLUENZA A- RESP PCR PANEL NOT DETECTED; INFLUENZA B - RESP PCR PANEL NOT DETECTED; M. PNEUMONIAE- RESP PCR PANEL NOT DETECTED; PARAINFLUENZA VIRUS 1 NOT DETECTED; PARAINFLUENZA VIRUS 2 NOT DETECTED; PARAINFLUENZA VIRUS 3 NOT DETECTED; PARAINFLUENZA VIRUS 4 NOT DETECTED; RHINOVIRUS/ENTEROVIRUS NOT DETECTED; RSV- RESP PCR PANEL NOT DETECTED; SARS-CoV-2 -RESP PCR PANEL NOT DETECTED
--- NOTE | 2022-08-17 12:10 | CT Report ---
PROCEDURE: ANGIO CHEST W/WO INDICATIONS: rule out PE CONTRAST: 80ml omni 300 TECHNIQUE: After the administration of intravenous contrast, 2 mm axial images were acquired from the pulmonary apices to the posterior costophrenic angles during the arterial phase. In addition, 1 mm lung kernel and 5 mm soft tissue kernel reconstructions were performed. 3-dimensional coronal oblique maximum int ensity projection (MIP) reformats, 8 mm axial MIP, and 5 mm coronal and sagittal MPR reformats were t hen performed through the thorax. For radiation dose reduction, the following was used: automated exp osure control, adjustment of mA and/or kV according to patient size. COMPARISON: CT 05/28/2022 FINDINGS: Image quality: Excellent. Large vessels: No filling defects within the opacified pulmonary arteries, accounting for motion and contrast timing. No evidence of acute aortic syndrome or aortic aneurysm. Lungs and pleura: Extensive, basilar predominant bronchiectasis with associated mucus impaction, cent rilobular nodularity and tree-in-bud nodules, slightly progressed from prior. Resolved upper lobe pre dominant groundglass compared with prior. Mediastinum: Heart size is normal. No pericardial effusion. No large vessel abnormality. No mediastin al adenopathy by size criteria. Three-vessel coronary calcifications. Chest wall and lower neck: Thyroid is unremarkable. No axillary or supraclavicular adenopathy by size . Bones: No aggressive osseous abnormality. Osteoporosis by Hounsfield units criteria. Upper Abdomen: Unremarkable. IMPRESSION: No pulmonary embolus. 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 Congenital ciliary disease not excluded. Reviewed by: Clyde Poon on 08/17/2022 12:09 PM PDT Approved by: Clyde Poon on 08/17/2022 12:09 PM PDT Station ID: [id number]
[2022-08-17 12:23] VITALS: BP 124/69
[2022-08-17] MEDS ORDERED: methylPREDNISolone SUCCINATE 125 MG/2 ML VIAL IVP STA (13:30)
[2022-08-17] MEDS ORDERED: iohexoL-300 100 ML VIAL IVP ONE (15:08)
== END 2022-08-17 14:07 | disposition home or self-care (01) ==
LOC: EDUNIT# → ED 09:50
DX: J44.1 Chronic obstructive pulmonary disease with (acute) exacerbation (principal); Z99.81 Dependence on supplemental oxygen; Z20.822 Contact with and (suspected) exposure to COVID-19
CPT/HCPCS: 36415; 71275; 80053; 82803; 83690; 83735; 83880; 84484; 85025; 87633; 93005; 96374; 99284; Q9967

== ENCOUNTER 2023-05-29 07:00 | Outpatient (CLI) | payer MEDICARE ==
--- NOTE | 2023-05-29 10:16 | XRAY Report ---
PROCEDURE: Chest 2V INDICATIONS: COPD, ACUTE EXACERBATION TECHNIQUE: 2 views of the chest were acquired. COMPARISON: CT chest angiogram, 03/19/2022. CT chest without, 05/28/2022. Chest x-ray, 05/18/2022. FINDINGS: Surgical changes and devices: None. Lungs and pleura: Bilateral diffuse pulmonary interstitial prominence. Honeycombing in lower lobes b ilaterally compatible with pulmonary fibrosis. There is focal infiltrate and consolidation in the lef t midlung zone compared with pneumonia. No pleural effusions or pneumothorax. Mediastinum: Mediastinal contours appear normal. Heart size is normal. Bones and chest wall: No suspicious bony lesions. Overlying soft tissues appear unremarkable. IMPRESSION: Suspect acute pneumonia in the left midlung zone superimposed on chronic interstitial lung disease an d pulmonary fibrosis. Recommend a short-term follow-up chest x-ray to ensure resolution. Reviewed by: Pepe Hernandez MD on 05/29/2023 10:14 AM PDT Approved by: Pepe Hernandez MD on 05/29/2023 10:14 AM PDT Station ID: [id number]
== END 2023-05-29 23:59 | disposition home or self-care (01) ==
LOC: DI.S 07:00
PROVIDERS: ATTEND Registered Nurse
DX: J44.1 Chronic obstructive pulmonary disease with (acute) exacerbation (principal); R09.02 Hypoxemia; R91.8 Other nonspecific abnormal finding of lung field

== ENCOUNTER 2023-05-29 08:00 | Outpatient (CLI) | payer MEDICARE | END 2023-05-29 08:01 | disposition home or self-care (01) | LOC: LAB.S 08:00 | PROVIDERS: ATTEND Registered Nurse | DX: R05.8 Other specified cough (principal); R09.02 Hypoxemia ==

== ENCOUNTER 2023-07-23 08:00 | Outpatient (CLI) | payer MEDICARE ==
--- NOTE | 2023-07-23 18:53 | XRAY Report ---
PROCEDURE: Chest 2V INDICATIONS: RIGHT LOWER ZONE PNEUMONIA TECHNIQUE: 2 views of the chest were acquired. COMPARISON: 07/29/2023, 08/17/2022 FINDINGS: Surgical changes and devices: None. Lungs and pleura: Resolved left midlung zone consolidation. Stable bronchiectasis, favoring the lowe r lobes. Mediastinum: Mediastinal contours appear normal. Heart size is normal. Bones and chest wall: No suspicious bony lesions. Overlying soft tissues appear unremarkable. IMPRESSION: Resolved left midlung zone consolidation. Stable bronchiectasis in the lower lobes. Reviewed by: Clyde Poon MD on 07/23/2023 6:51 PM PDT Approved by: Clyde Poon MD on 07/23/2023 6:51 PM PDT Station ID: [id number]
== END 2023-07-23 23:59 | disposition home or self-care (01) ==
LOC: DI.S 08:00
PROVIDERS: ATTEND Emergency Medicine
DX: J47.9 Bronchiectasis, uncomplicated (principal)
CPT/HCPCS: 87070; 87205

== ENCOUNTER 2023-08-09 07:00 | Outpatient (CLI) | payer MEDICARE ==
--- NOTE | 2023-08-09 17:16 | XRAY Report ---
PROCEDURE: Chest 2V INDICATIONS: COPD/RIGHT LOWER ZONE PNA TECHNIQUE: 2 views of the chest were acquired. COMPARISON: 07/23/2023, 05/29/2023, 05/18/2022. FINDINGS: Surgical changes and devices: None. Lungs and pleura: No pleural effusions or pneumothorax. Chronic increased interstitial prominence is seen unchanged from prior study. No definite focal infiltrate. Hyperinflation is seen. Mediastinum: Tortuous thoracic aorta. Heart size is normal. Bones and chest wall: No suspicious bony lesions. Overlying soft tissues appear unremarkable. IMPRESSION: COPD and chronic interstitial lung disease. No definite focal infiltrate. No pleural effusion or pneu mothorax. Reviewed by: Otis Edmond MD on 08/09/2023 5:14 PM PDT Approved by: Otis Edmond MD on 08/09/2023 5:14 PM PDT Station ID: [id number]
== END 2023-08-09 23:59 | disposition home or self-care (01) ==
LOC: DI.S 07:00
PROVIDERS: ATTEND Emergency Medicine
DX: J44.1 Chronic obstructive pulmonary disease with (acute) exacerbation (principal); J84.9 Interstitial pulmonary disease, unspecified

== ENCOUNTER 2023-09-14 05:49 | Emergency (ER) | payer MEDICARE ==
--- NOTE | 2023-09-14 06:06 | ED Physician Documentation ---
PD HPI FOCAL NEURO - Stated complaint Stated Complaint: SLURRED SPEECH - Chief complaint Chief Complaint: Neuro - History obtained from History obtained from: Patient - Additional information Additional information: HPI from patient. Patient complains of generalized weakness, speech difficulty, difficulty with swallowing. Patient says she woke up with the symptoms at approximately midnight. She says that she went to sleep at approximately 9 PM feeling at her baseline (last known normal). Regarding the speech difficulty, the patient is not clear in elaborating on this. She seems to be describing feeling some delay in gathering her thoughts and that she feels like she is not as talkative as she usually is. Regarding the difficulty swallowing, she says that she tried to drink some water earlier this morning but could not due to "I was not coordinated" (per patient). Again, and asking patient to elaborate on this, she cannot provide more detailed than this. Lastly, regarding her generalized weakness, she says she feels too weak to walk since waking up at approximately midnight. She denies focal/lateral weakness and specifically says it is generalized weakness that she is experienci ng. PD PAST MEDICAL HISTORY - Past Medical History Cardiovascular: None, Other Respiratory: COPD Neuro: None Endocrine/Autoimmune: None GI: Other : None HEENT: Other Psych: None Musculoskeletal: Osteoarthritis Derm: None - Past Surgical History General: Appendectomy Ortho: Other /[employer]ER: Tubal ligation HEENT: Cataracts, Tonsil/Adenoidectomy Derm: Skin cancer surgery - Present Medications Home Medications: Ambulatory Orders Medication Instructions Recorded Confirmed Albuterol 1 QID 12/18/18 Multivitamin [Daily Multiple 1 PO DAILY 12/18/18 Vitamin] Tiotropium Br/Olodaterol HCl 2 inh PO BID 12/18/18 02/10/20 [Stiolto Respimat Inhal [place]] Ciclesonide [Alvesco] 1 puffs PO BID 02/10/20 02/10/20 predniSONE [Prednisone] 50 mg PO DAILY #4 tablet 08/17/22 Amox/Clav 875/125 [Augmentin] 1 each PO BID #12 tablet 09/14/23 Nirmatrelvir/Ritonavir [Paxlovid 1 each PO BID 5 Days #10 tab 09/14/23 300-100 mg Dose Pack] dexAMETHasone [Decadron] 4 mg PO DAILY #6 tablet 09/14/23 - Allergies Allergies/Adverse Reactions: Allergies Allergy/AdvReac Type Severity Reaction Status Date / Time doxycycline Allergy Unknown Verified 09/14/23 06:07 iodine Allergy Unknown Verified 09/14/23 06:07 pravastatin AdvReac Unknown Verified 09/14/23 06:07 - Social History Does the pt smoke?: No Smoking Status: Never smoker PD ED PE NORMAL - Vitals Vital signs reviewed: Yes - General General: Alert and oriented X 3, No acute distress, Well developed/nourished - HEENT HEENT: PERRL, EOMI, Other (tacky mucous membranes) - Neck Neck: Supple, no meningeal sign - Cardiac Cardiac: RRR, No murmur - Respiratory Respiratory: No respiratory distress, Clear bilaterally - Abdomen Abdomen: Soft, Non tender - Derm Derm: Normal color, Warm and dry - Extremities Extremities: No edema - Neuro Neuro: Alert and oriented X 3 Eye Opening: To Voice Motor: Obeys Commands Verbal: Oriented GCS Score: 14 NIHSS - Level of Consciousness Level of consciousness: (1) Not alert, but arousable by minor stimulation to obey, or answer LOC Questions: (0) Answers both Q's correct LOC Commands: (0) Performs both correctly - Gaze Best Gaze: (0) Normal - Visual Visual: (0) No loss - Facial Palsy Facial Palsy: (0) Normal, symmetrical movement - Motor Arms (both separate) Motor Arm (right): (0) No drift Motor Arm (left): (0) No drift - Motor Legs (both separate) Motor Leg (right): (0) No drift Motor Leg (left): (0) No drift - Limb Ataxia Limb Ataxia: (0) Absent - Sensory Sensory: (0) Normal - Best Language Best Language: (1) [id number] (unable to describe what is happening in the kitchen scene/picture. minimal difficulty with reading phrases, naming objects) - Dysarthria Dysarthria: (0) Normal - Extinction and Inattention (formally neg Extinction and inattention: (0) No abnormality - Total Score/Results Total Score/Result: 2 Results - Vitals Vitals: Vital Signs - 24 hr 09/14/23 09/14/23 09/14/23 06:00 06:20 06:31 Temperature 34.6 C L 34.1 C L Heart Rate 82 86 83 Respiratory 20 19 21 Rate Blood Pressure 160/92 H 158/91 H 140/81 H O2 Saturation 93 95 99 If not protocol 2 2 : Oxygen Flow, liters/minute 09/14/23 09/14/23 09/14/23 06:39 07:01 07:39 Temperature 34.1 C L 34.6 C L Heart Rate 83 84 83 Respiratory 20 18 Rate Blood Pressure 140/81 H 148/90 H 145/85 H O2 Saturation 98 98 97 If not protocol 2 2 2 : Oxygen Flow, liters/minute 09/14/23 09/14/23 09/14/23 08:30 09:30 10:02 Temperature 35.6 C L Heart Rate 101 H 82 Respiratory 16 17 Rate Blood Pressure 135/82 H 106/64 O2 Saturation 96 95 If not protocol 2 : Oxygen Flow, liters/minute 09/14/23 09/14/23 09/14/23 10:14 10:30 11:00 Temperature 35.8 C L Heart Rate 88 85 Respiratory 16 25 H Rate Blood Pressure 120/77 118/76 O2 Saturation 96 96 If not protocol 2 2 : Oxygen Flow, liters/minute 09/14/23 09/14/23 09/14/23 11:30 13:56 14:00 Temperature Heart Rate 91 89 72 Respiratory 25 H 27 H 16 Rate Blood Pressure 120/76 121/78 127/83 H O2 Saturation 96 100 96 If not protocol 2 2 : Oxygen Flow, liters/minute 09/14/23 09/14/23 09/14/23 14:30 15:00 15:20 Temperature Heart Rate 77 78 88 Respiratory 22 20 20 Rate Blood Pressure 124/80 122/78 O2 Saturation 98 97 If not protocol 2 2 2 : Oxygen Flow, liters/minute 09/14/23 09/14/23 15:30 16:00 Temperature Heart Rate 76 70 Respiratory 22 Rate Blood Pressure 121/77 118/80 O2 Saturation 98 98 If not protocol 2 2 : Oxygen Flow, liters/minute Oxygen O2 Source Nasal cannula Oxygen Flow Rate 2 - EKG (time done) No standard instances EKG releavant findings:: EKG personally interpreted by author of this note. Relevant findings are: Rate: Rate (enter#) (80) Rhythm: NSR [place]: Normal Intervals: Prolonged MI QRS: Normal Ischemia: Normal ST segments - Labs Labs: Laboratory Tests 0709/14/23 09/14/23 06:12 06:12 06:12 WBC 13.9 H RBC 5.12 Hgb 12.8 Hct 41.5 MCV 81.1 MCH 25.0 L MCHC 30.8 L RDW 17.6 H Plt Count 152 MPV 0.0 L Neut # (Auto) 10.6 H Lymph # (Auto) 2.0 [place] # (Auto) 0.7 Eos # (Auto) 0.3 Baso # (Auto) 0.2 H Absolute Nucleated RBC 0.00 Nucleated RBC % 0.0 Manual Slide Review Indicated Platelet Estimate NORMAL (130-450,000) Platelet Morphology NORMAL APPEARANCE Sodium 137 Potassium 3.4 L Chloride 101 Carbon Dioxide 29 Anion Gap 7.0 BUN 15 Creatinine 0.5 L Estimated GFR (MDRD) 119 Glucose 175 H Lactic Acid 1.0 Calcium 9.2 Total Bilirubin 0.3 AST 20 ALT 14 Alkaline Phosphatase 82 Total Protein 7.7 Albumin 4.5 Globulin 3.2 Albumin/Globulin Ratio 1.4 Lipase 13 TSH Urine Color Urine Clarity Urine pH Ur Specific Leiter Urine Protein Urine Glucose (UA) Urine Ketones Urine Occult Blood Urine Nitrite Urine Bilirubin Urine Urobilinogen Ur Leukocyte Esterase Ur Microscopic Review Urine Culture Comments Nasal Adenovirus (PCR) Nasal B. parapertussis DNA (PCR) Nasal Coronavir 229E PCR Nasal Coronavir HKU1 PCR Nasal Coronavir NL63 PCR Nasal Coronavir OC43 PCR Nasal Enterovir/Rhinovir PCR Nasal Influenza B PCR Nasal Influenza A PCR Nasal Parainfluen 1 PCR Nasal Parainfluen 2 PCR Nasal Parainfluen 3 PCR Nasal Parainfluen 4 PCR Nasal RSV (PCR) Nasal B.pertussis DNA PCR Nasal C.pneumoniae (PCR) [place] Human Metapneumo PCR Nasal M.pneumoniae (PCR) Nasal SARS-CoV-2 (PCR) 09/14/23 09/14/23 09/14/23 06:30 06:30 07:11 WBC RBC Hgb Hct MCV MCH MCHC RDW Plt Count MPV Neut # (Auto) Lymph # (Auto) [place] # (Auto) Eos # (Auto) Baso # (Auto) Absolute Nucleated RBC Nucleated RBC % Manual Slide Review Platelet Estimate Platelet Morphology Sodium Potassium Chloride Carbon Dioxide Anion Gap BUN Creatinine Estimated GFR (MDRD) Glucose Lactic Acid Calcium Total Bilirubin AST ALT Alkaline Phosphatase Total Protein Albumin Globulin Albumin/Globulin Ratio Lipase TSH 1.10 Urine Color YELLOW Urine Clarity CLEAR Urine pH 7.5 Ur Specific Leiter 1.020 Urine Protein NEGATIVE Urine Glucose (UA) NEGATIVE Urine Ketones NEGATIVE Urine Occult Blood NEGATIVE Urine Nitrite NEGATIVE Urine Bilirubin NEGATIVE Urine Urobilinogen 0.2 (NORMAL) Ur Leukocyte Esterase NEGATIVE Ur Microscopic Review NOT INDICATED Urine Culture Comments NOT INDICATED Nasal Adenovirus (PCR) NOT DETECTED Nasal B. parapertussis DNA (PCR) NOT DETECTED Nasal Coronavir 229E PCR NOT DETECTED Nasal Coronavir HKU1 PCR NOT DETECTED Nasal Coronavir NL63 PCR NOT DETECTED Nasal Coronavir OC43 PCR NOT DETECTED Nasal Enterovir/Rhinovir PCR NOT DETECTED Nasal Influenza B PCR NOT DETECTED Nasal Influenza A PCR NOT DETECTED Nasal Parainfluen 1 PCR NOT DETECTED Nasal Parainfluen 2 PCR NOT DETECTED Nasal Parainfluen 3 PCR NOT DETECTED Nasal Parainfluen 4 PCR NOT DETECTED Nasal RSV (PCR) NOT DETECTED Nasal B.pertussis DNA PCR NOT DETECTED Nasal C.pneumoniae (PCR) NOT DETECTED [place] Human Metapneumo PCR NOT DETECTED Nasal M.pneumoniae (PCR) NOT DETECTED Nasal SARS-CoV-2 (PCR) DETECTED A - Rads (name of study) CTA head/neck Relevant Findings:: Prelim report reviewed, See rad report chest xray Relevant Findings:: Prelim report reviewed, See rad report PD Medical Decision Making - ED course Complexity details: considered differential, d/w patient ED course: Patient's chief complaint and physical exam are not particularly suggestive of any specific diagnosis including stroke. Nevertheless, a stroke-oriented workup is initiated. The results are pending at the end of my shift and care of this patient is turned over the oncoming ED physician (Dr. Arguello). Departure - Departure Disposition: 01 Home, Self Care Clinical Impression: General weakness, Difficulty speaking, COVID-19, History of COPD Condition: Stable Instructions: ED Viral Syndrome Prescriptions: Amox/Clav 875/125 [Augmentin] 1 each PO BID #12 tablet dexAMETHasone [Decadron] 4 mg PO DAILY #6 tablet Nirmatrelvir/Ritonavir [Paxlovid 300-100 mg Dose Pack] 1 each PO BID 5 Days #10 tab Comments: Your head CT angiogram did not show any blockage of blood flow nor obvious bleeds. The brain MRI more certainly shows no signs of stroke tumors masses MS etc. Your respiratory panel test was positive for COVID. Your chest x-ray showed a small infiltrate suggesting pneumonia. This likely is viral related to the early COVID but given your COPD we would treat it with antibiotics as well as steroids to avoid a flareup of the COPD and if there is any bacterial component. Presumption your general feeling of weakness and difficulty speaking this morning were related to the illness coming on and are not related to stroke etc. Your basic blood test appeared well as well. At this point try to stay well-hydrated. Continue with usual breathing medications and oxygen at home. I wrote for Augmentin and Decadron antibiotic and steroid to use over the next 5 days to try to the likelihood of flaring up your COPD with the COVID. There is a antiviral medication that is mildly beneficial for the current iterations of COVID. The Paxlovid antiviral is combination of the 2 of them taken twice daily.. You can take these as there may be some benefit. However you can tell if there are side effects in that if you have a lot of nausea or upset stomach in the hour or 2 after taking it. since the benefit is mild from the medication, you can just stop the antivirals if they make you feel bad. Return to the ER if generally worsening. I sent your prescriptions to your preferred pharmacy. Forms: PCP List Discharge Date/Time: 09/14/23 16:36
[2023-09-14] MEDS: SODIUM CHLORIDE 0.9% 1,000 ML IV STA (06:15)
[2023-09-14 06:36] LABS: BASOPHILS # (AUTO) 0.2 10^3/uL (0.0-0.1); BASOPHILS % (AUTO) 1.2 %; EOSINOPHILS # (AUTO) 0.3 10^3/uL (0.0-0.7); EOSINOPHILS % (AUTO) 1.8 %; HCT - HEMATOCRIT 41.5 % (37.0-47.0); HGB - HEMOGLOBIN 12.8 g/dL (12.0-16.0); LYMPHOCYTES % (AUTO) 14.1 %; MEAN CORPUSCULAR HGB CONC 30.8 g/dL (32.0-36.0); MEAN CORPUSCULAR VOLUME 81.1 fL (81.0-99.0); MONOCYTES # (AUTO) 0.7 10^3/uL (0.0-1.0); MONOCYTES % (AUTO) 4.9 %; NEUTROPHILS # (AUTO) 10.6 10^3/uL (1.5-6.6); NEUTROPHILS % (AUTO) 76.4 %; PLT - PLATELET COUNT 152 10^3/uL (130-450); RED BLOOD COUNT 5.12 10^6/uL (4.20-5.40); RED CELL DISTRIBUTION WIDTH 17.6 % (12.0-15.0); WHITE BLOOD COUNT 13.9 x10^3/uL (4.8-10.8)
[2023-09-14 06:39] LABS: ALBUMIN 4.5 g/dL (3.2-5.5); ALBUMIN/GLOBULIN RATIO 1.4 (1.0-2.2); BILIRUBIN,TOTAL 0.3 mg/dL (0.2-1.0); CALCIUM 9.2 mg/dL (8.5-10.3); CREATININE 0.5 mg/dL (0.6-1.3); POTASSIUM 3.4 mmol/L (3.5-4.5); TOTAL PROTEIN 7.7 g/dL (6.4-8.9)
[2023-09-14] MEDS ORDERED: iohexoL-300 100 ML VIAL ONE (06:58)
[2023-09-14 07:25] LABS: BILIRUBIN,URINE NEGATIVE (NEGATIVE); GLUCOSE, URINE (UA) NEGATIVE (NEGATIVE); KETONES,URINE (UA) NEGATIVE (NEGATIVE); LEUKOCYTE ESTERASE, URINE NEGATIVE (NEGATIVE); NITRITE,URINE NEGATIVE (NEGATIVE); OCCULT BLOOD,URINE NEGATIVE (NEGATIVE); PH,URINE 7.5 PH (5.0-7.5); PROTEIN,URINE NEGATIVE (NEGATIVE); UROBILINOGEN,URINE 0.2 (NORMAL) E.U./dL (NORMAL)
[2023-09-14 07:26] LABS: SLIDE REVIEW? Indicated
[2023-09-14 07:27] LABS: PLATELET ESTIMATE, MANUAL NORMAL (130-450,000) (NORMAL); PLATELET MORPHOLOGY NORMAL APPEARANCE (NORMAL)
[2023-09-14 07:27] LABS: CLARITY,URINE CLEAR (CLEAR)
[2023-09-14] MEDS: iohexoL-300 100 ML VIAL IVP ONE (07:30)
--- NOTE | 2023-09-14 07:41 | CT Report ---
PROCEDURE: Angio Head/Neck INDICATIONS: weakness, difficulty with speech TECHNIQUE: After the administration of intravenous contrast, 1 mm thick sections acquired from the aortic arch t hrough the [place] [facility] [place]. 3-dimensional kjnygxz-dhirhxwwv-yxcifxqzzh (MIP) and/or volume renderin g reformats were acquired of the central intracranial vasculature and neck separately. For radiation dose reduction, the following was used: automated exposure control, adjustment of mA and/or kV acco rding to patient size. CONTRAST: 80ml omni 300 COMPARISON: None. FINDINGS: Image quality: Diagnostic. HEAD CT: CSF Spaces: Basal cisterns are patent. No extra-axial fluid collections. Ventricles are normal in size and shape. Brain: No significant abnormality is seen for scanning technique. Skull and face: Calvarium and visualized facial bones appear intact, without suspicious lesions. Sinuses: Complete opacification of left maxillary sinus is seen. Bilateral mastoids are well aerated. HEAD CT ANGIOGRAPHY: Anterior circulation: Intracranial internal carotid arteries are normal in size and flow. The flow within the paired anterior cerebral arteries is normal and symmetric. The flow within the middle cer ebral arteries is normal and symmetric. The anterior communicating artery is seen. No aneurysms are seen. Posterior circulation: Visualized portions of the vertebral arteries demonstrate normal caliber, and join to form a normal appearing basilar artery. Flow within the posterior cerebral arteries is norm al and symmetric. No aneurysms are seen. NECK CT ANGIOGRAPHY: Carotid system: The great vessels demonstrate a conventional anatomy as they arise from the aortic a rch. The origins of the common carotid arteries appear patent. The common carotid arteries demonstr ate normal caliber and courses. The bifurcation regions are both widely patent. The internal caroti d arteries demonstrate normal calibers and courses. Posterior circulation: The origins of the vertebral arteries both appear widely patent. The more marley perior extracranial portions of both vertebral arteries also demonstrate normal courses and calibers. They join to form a normal appearing basilar artery. Soft tissues: Visualized neck soft tissues demonstrate no suspicious abnormalities. Bones: No suspicious bony lesions. Degenerative disc disease throughout cervical spine is seen with grade 1 anterolisthesis of C3 on C4 and grade 1 retrolisthesis of C5 on C6. IMPRESSION: 1. No significant intracranial arterial abnormality is seen. 2. No significant abnormality is seen within the arteries of the neck. 3. Left maxillary sinusitis. 4. Degenerative disc disease throughout cervical spine as above. The estimate of stenosis included in the report of the imaging study was calculated using the NASCET method Reviewed by: Otis Nguyen MD on 09/14/2023 7:40 AM PDT Approved by: Otis Nguyen MD on 09/14/2023 7:40 AM PDT Station ID: [id number]
--- NOTE | 2023-09-14 07:45 | XRAY Report ---
PROCEDURE: Chest 1V INDICATIONS: chest pain TECHNIQUE: One view of the chest was acquired. COMPARISON: 08/09/2023. FINDINGS: Surgical changes and devices: None. Lungs and pleura: No pleural effusions or pneumothorax. Chronic increased interstitial lung markings are noted not significantly changed from previous study. Superimposed small interstitial infiltrates cannot be entirely excluded. Mediastinum: Mediastinal contours appear normal. Heart size is normal. Bones and chest wall: No suspicious bony lesions. Overlying soft tissues appear unremarkable. IMPRESSION: Chronic interstitial lung parenchymal disease. COPD. Superimposed interstitial infiltrates cannot be entirely excluded. No pleural effusion or pneumothorax. Reviewed by: Otis Nguyen MD on 09/14/2023 7:43 AM PDT Approved by: Otis Nguyen MD on 09/14/2023 7:43 AM PDT Station ID: [id number]
[2023-09-14 07:54] LABS: B. PARAPERTUSSIS- RESP PCR PAN NOT DETECTED; B. PERTUSSIS- RESP PCR PANEL NOT DETECTED; C. PNEUMONIAE- RESP PCR PANEL NOT DETECTED; CORONAVIRUS 229E-RESP PCR NOT DETECTED; CORONAVIRUS HKU1-RESP PCR NOT DETECTED; CORONAVIRUS NL63-RESP PCR NOT DETECTED; CORONAVIRUS OC43-RESP PCR NOT DETECTED; HUMAN METAPNEUMOVIRUS NOT DETECTED; INFLUENZA A- RESP PCR PANEL NOT DETECTED; INFLUENZA B - RESP PCR PANEL NOT DETECTED; M. PNEUMONIAE- RESP PCR PANEL NOT DETECTED; PARAINFLUENZA VIRUS 1 NOT DETECTED; PARAINFLUENZA VIRUS 2 NOT DETECTED; PARAINFLUENZA VIRUS 3 NOT DETECTED; PARAINFLUENZA VIRUS 4 NOT DETECTED; RHINOVIRUS/ENTEROVIRUS NOT DETECTED; RSV- RESP PCR PANEL NOT DETECTED
[2023-09-14 07:56] LABS: SARS-CoV-2 -RESP PCR PANEL DETECTED
[2023-09-14] MEDS: AMOX/CLAV 875 MG/125 MG TABLET PO STA (11:27)
[2023-09-14] MEDS: LACTATED RINGERS 1,000 ML IV STA (11:37)
--- NOTE | 2023-09-14 13:27 | MRI Report ---
PROCEDURE: Brain WO INDICATIONS: altered MS, speech since last evening TECHNIQUE: Noncontrast axial T1 spin echo, axial T2 fast spin echo, sagittal and axial FLAIR, coronal T2 fast sp in echo, axial gradient echo, axial diffusion and ADC through the brain. COMPARISON: CT angiogram of head and neck from the same day and MRI of brain dated 02/09/2022. FINDINGS: Image quality: Excellent. CSF Spaces: Basal cisterns are patent. No extra-axial fluid collections. Ventricles are normal in size and shape. Brain: There is age-related volume loss and extensive periventricular and deep white matter chronic i schemic small vessel ischemic changes. No intracranial masses or acute hemorrhage. Numerous foci of s usceptibility artifact scattered in bilateral cerebral and cerebellar hemisphere more notably on the left side concerning for old petechial hemorrhage [place]/white matter interface is normal. Brainstem appears normal. Diffusion-weighted images demonstrate no acute ischemic insult. No chronic ischemic insults. Normal intravascular flow voids are present. Skull and face: Calvarium has normal marrow signal. Orbits appear normal. Sinuses: Sinuses and mastoids are clear. IMPRESSION: 1. No acute infarction. No acute intracranial bleed, midline shift or mass effect. 2. Numerous foci of susceptibility artifact scattered in bilateral cerebral and cerebellar parenchyma concerning for remote microvascular hemorrhage. Finding is unchanged from previous study. 3. Age-related volume loss and extensive white matter disease. Reviewed by: tOis Nguyen MD on 09/14/2023 1:25 PM PDT Approved by: Otis Nguyen MD on 09/14/2023 1:25 PM PDT Station ID: [id number]
[2023-09-14] MEDS: DEXAMETHASONE 10 MG/ML VIAL IVP STA (15:02)
[2023-09-14] MEDS: ALBUTEROL 1 PUFF INH STA (15:15)
--- NOTE | 2023-09-14 15:34 | ED Physician Documentation ---
ED Addendum - Addendum Addendum: 09/14/23 15:31 The patient was seen after change of shift. She appeared well. Her breathing was unlabored. She was advised of her respiratory panel test that was positive for current COVID. Otherwise her oxygenation is good at 96% on her usual home 2 L nasal cannula. She does have a history of COPD and uses oxygen "24/". She has noticed a little bit of increased dyspnea with cough the last day or so. No other noted abnormalities until today with the general weakness and some sluggish thought process. Her CTs had been without acute abnormality. However there was concern for stroke or other brain abnormalities. As such she had a brain MRI ordered. They were able to get at that and this early afternoon. We now just have the CT MRI report back a little bit ago. No stroke is seen. Microvascular changes have been noted and she states she was aware of those in the past. No signs of other abnormalities such as tumors or MS. At this point no signs of stroke or acute brain abnormality. She has good oxygenation. She was slightly low in temperature coming in but that is good now. Negative get a lactate. Vitals heart rate and blood pressure has been good. I think she appears well enough for home. Her chest x-ray shows a small mild infiltrate. Given her COPD, could be reasonable to go with antibiotics and steroids in case. Disposition: The patient discharged home in stable condition. Diagnoses: 1. Acute COVID infection 2. General weakness 3. Difficulty speaking, transient 4. History of COPD.
[2023-09-14 16:38] VITALS: BP 118/80; O2SAT 98
== END 2023-09-14 16:36 | disposition home or self-care (01) ==
LOC: ED 05:49
DX: U07.1 COVID-19 (principal); J44.9 Chronic obstructive pulmonary disease, unspecified; Z99.81 Dependence on supplemental oxygen; I67.82 Cerebral ischemia; R91.8 Other nonspecific abnormal finding of lung field
CPT/HCPCS: 36415; 70496; 70498; 70551; 71045; 80053; 81003; 83605; 83690; 84443; 85025; 87633; 93005; 94640; 96374; 99284; A9270; J7120; Q9967; 81001; 87086